=== PATIENT | female | born 1980 | race Caucasian/White ===

== ENCOUNTER 2017-07-17 23:05 | Emergency (ER) | payer MEDICAID ==
[~2017-07-17 23:05] MED LIST: ACET-2043 PO; ACET-3017 PO; AMOX-362 PO; BAC PO; BACDS PO; BACL-1 PO; CEP500 PO; CEPH500T7 PO; CIP500 PO; CIPR-344 PO; CLI150 PO; CLIN300C99 PO; CRAN250T PO; CYCL10TA29 PO; DIA5 PO; DICL-192 PO; DICY-42 PO; DOCU-416 PO; DOXY-179 PO; DOXY-229 PO; FAM20 PO; HYDR-4309 PO; IBU600 PO; IBU800 PO; IBUP-1784 PO; IBUP200C71 PO; IBUP800T37 PO; KET10 PO; LOR5 PO; LOR5/325 PO; MULT1TAB64 PO; NO CURRENT MEDS; NO ROUTINE MEDS; NONE CURRENT; NYST15CR32 TP; ONDA4TAB97 PO; OXYC-373 PO; OXYC-865 PO; PENI-24 PO; PER PO; PHEN-529 PO; PHEN95TA44 PO; PHEN97.53; PHENA200 PO; PROM-110 PO; TAMS0.4C70 PO
--- NOTE | 2017-07-17 23:11 | ER Report ---
History and Physical Time Seen By MD: 23:11 HPI/ROS CHIEF COMPLAINT: Mid back pain HISTORY OF PRESENT ILLNESS: 37-year-old female presents ambulatory to the ER complaining of left upper mid back pain. She points to the area between her spine and the left scapula. She notes she's had a kink in her neck and back for the last 5 days. She's been unable to sleep. She's been taking ibuprofen without relief. She took a leftover muscle relaxant with little improvement. Patient denies fever, chills, productive cough or leg swelling. Patient denies any injury. Patient denies dysuria. Allergies: Coded Allergies: naproxen (Verified Allergy, Intermediate, RASH, 06/25/17) tramadol (Verified Allergy, Intermediate, RASH, 06/25/17) Home Meds Active Scripts Prednisone 10 Mg Tab (PREDNISONE 10 MG TAB) 10 Mg Tablet, 10 MG PO QDAY Y for inflammation reduction, #9 2 tabs daily for 3 days 1 tab daily for 3 days Prov:CRUZ LUEVANO 07/17/17 Diazepam (VALIUM) 5 Mg Tablet, 1-2 TAB PO Q6-8H Y for muscle spasm relief, #15 TAB Prov:CRUZ LUEVANO DO 07/17/17 Oxycodone Hcl/Acetaminophen (PERCOCET 5-325 MG TABLET) 1 Each Tablet, 1-2 EACH PO Q4-6H Y for PAIN, #15 Prov:CRUZ LUEVANO DO 07/17/17 Discontinued Scripts NYSTATIN 363459 UNT/ML Topical Cream (NYSTATIN 146499 UNT/ML Topical Cream) 15 Gm Cream..g., 1 PATRICIO TP BID, #15 GM Prov:PAT DINERO PA-C 06/25/17 Cephalexin 500 Mg Tab (KEFLEX 500 MG TAB) 500 Mg Tablet, 500 MG PO Q6H, #28 TAB Prov:PAT DINERO PA-C 06/25/17 Baclofen (BACLOFEN) 10 Mg Tablet, 10 MG PO TID Y for prn, #15 TAB Prov:PAT DINERO PA-C 06/25/17 Diclofenac Sodium (DICLOFENAC SODIUM) 50 Mg Tablet.dr, 50 MG PO TID Y for prn, # 14 TAB Prov:PAT DINERO PA-C 06/25/17 Past Medical/Surgical History Patient has a past medical history of hypertension, frequent UTIs, cyst on ovaries, arthritis, fractures, back pain. Patient denies any surgical history. Patient has a family medical history of diabetes. Reviewed Nurses Notes: Yes Old Medical Records Reviewed: Yes Hx Smoking: No Smoking Status: Former Smoker Exposure to Second Hand Smoke?: No Hx Substance Use Disorder: No Hx Alcohol Use: No Constitutional Vital Sign - Last 24 Hours 07/17/17 07/17/17 07/17/17 07/17/17 23:09 23:10 23:11 23:15 Temp 98.5 Pulse 96 90 84 Resp 18 B/P (MAP) 155/91 (112) 155/91 Pulse Ox 97 97 96 O2 Delivery Room Air 07/17/17 07/17/17 07/17/17 07/18/17 23:20 23:25 23:30 00:03 Pulse 89 83 97 B/P (MAP) 128/88 (101) Pulse Ox 94 93 95 07/18/17 00:05 Pulse Ox 93 Physical Exam General appearance: Alert no distress. Respiratory: Chest is non tender, lungs are clear to auscultation. Cardiac: Regular rate and rhythm Musculoskeletal: Back there is spasm and tenderness of the thoracic paraspinous musculature on the left side, there is no CVA tenderness DIFFERENTIAL DIAGNOSIS: After history and physical exam differential diagnosis was considered for back pain including but not limited to muscular pain, herniated disc, spine fracture, intra-abdominal causes and urinary tract infection. Medical Decision Making ED Course/Re-evaluation ED Course Patient was admitted to an examination room. H&P was done. The differential diagnoses was considered. On clinical examination. Patient has stable vital signs per she has no fever. She has a normal pulse ox. There is muscular tenderness and spasm consistent with thoracic strain, or somatic muscle dysfunction. Patient's advised to conservative treatment plan. She prescribed muscle relaxants and pain pills. She is advised to continue ibuprofen and heating pad. She is advised to follow-up with primary care if unimproved in 3- 5 days for referral for physical therapy or further diagnostic testing. Decision to Disposition Date: Jul 17, 2017 Decision to Disposition Time: 23:35 Depart Departure Latest Vital Signs Vital Signs Date Time Temp Pulse Resp B/P (MAP) Pulse Ox O2 Delivery O2 Flow Rate FiO2 07/18/17 00:05 93 07/18/17 00:03 128/88 (101) 07/17/17 23:30 97 07/17/17 23:11 98.5 18 Room Air Impression: Primary Impression: Spasm of thoracic back muscle Condition: Improved Disposition: HOME OR SELF-CARE Referrals: KITA HAMLIN CNM New Scripts Prednisone 10 Mg Tab (PREDNISONE 10 MG TAB) 10 Mg Tablet 10 MG PO QDAY Y for inflammation reduction, #9 2 tabs daily for 3 days 1 tab daily for 3 days Prov: CRUZ LUEVANO DO 07/17/17 Diazepam (VALIUM) 5 Mg Tablet 1-2 TAB PO Q6-8H Y for muscle spasm relief, #15 TAB Prov: CRUZ LUEVANO DO 07/17/17 Oxycodone Hcl/Acetaminophen (PERCOCET 5-325 MG TABLET) 1 Each Tablet 1-2 EACH PO Q4-6H Y for PAIN, #15 Prov: CRUZ LUEVANO DO 07/17/17 Patient Instructions: Thoracic Back Strain (ED) Additional Instructions: Apply heating pad to the affected area Continue to take ibuprofen 200 mg 3 tablets 3 times a day with food Take all medication with food Follow-up with your primary care if unimproved in 3-5 days CRUZ LUEVANO DO Jul 17, 2017 23:11
[2017-07-17] MEDS ORDERED: DIA5 PO (23:38)
[2017-07-17] MEDS ORDERED: OXYC-865 PO (23:38)
[2017-07-17] MEDS ORDERED: PRED-1 PO (23:38)
[2017-07-17] MEDS ORDERED: HYDROmorphone HCL 2 MG TAB PO ONE (23:40)
[2017-07-17] MEDS ORDERED: DIAZEPAM 10 MG TAB PO ONE (23:40)
[2017-07-17] MEDS ORDERED: DIAZEPAM 5 MG TAB TH 2 TAB/BOTTLE PO ONE (23:40)
[2017-07-17] MEDS ORDERED: predniSONE 20 MG TAB PO ONE (23:40)
[2017-07-17] MEDS ORDERED: oxyCODONE/ACETAMIN 5/325MG TH 2 TAB/BOTTLE PO ONE (23:40)
[2017-07-18 00:03] VITALS: BP 128/88
== END 2017-07-17 23:58 | disposition home or self-care (01) ==
LOC: ER 23:15
DX: M62.830 Muscle spasm of back (principal)
CPT/HCPCS: 99283; J7512

== ENCOUNTER → 2017-08-02 | Outpatient (REF) | payer MEDICAID ==
[~2017-08-02] MED LIST changes: +PRED-1 PO
[2017-08-02 13:57] LABS: PLATELET COUNT, AUTOMATED 250 K/uL (150-450)
== END ==
PROVIDERS: ATTEND Physician Assistant Medical
DX: R10.9 Unspecified abdominal pain (principal)
CPT/HCPCS: 82040; 82247; 82310; 82374; 82435; 82565; 82947; 83690; 84075; 84132; 84155; 84295; 84450; 84460; 84520; 85025

== ENCOUNTER → 2017-08-02 | Outpatient (CLI) | payer MEDICAID ==
--- NOTE | 2017-08-02 16:01 | RADIOLOGY IMAGING REPORT ---
FACILITY: [facility] PATIENT NAME: Maria Elena Wiley : 1980 MR: [id number] V: [id number] EXAM DATE: ORDERING PHYSICIAN: DAVID FRY TECHNOLOGIST: Location: [facility] Patient: Maria Elena Wiley : 1980 Visit/Account:[id number] Date of Sevice: 08/02/2017 EXAMINATION: CT ABDOMEN AND PELVIS WITHOUT CONTRAST COMPARISON: 10/13/2016 and earlier HISTORY: Abdominal pain. PROCEDURE: Multiplanar noncontrast CT of the abdomen and pelvis. One of the following dose optimizati on techniques was utilized in the performance of this exam: Automated exposure control; adjustment of the mA and/or kV according to the patient's size; or use of an iterative reconstruction technique. Specific details can be referenced in the facility's radiology CT exam operational policy. FINDINGS: Evaluation of the solid and viscus parenchymal organs and vascular structures is limited wi thout the benefit of IV contrast. Visualized thorax: Negative. Liver: Noncontrast imaging of the visualized liver is within normal limits. Gallbladder and biliary system: Negative Spleen: Spleen size is normal. Pancreas: Noncontrast imaging of the pancreas is within normal limits. Adrenal glands: Negative. Kidneys and bladder: Left kidney lower pole 3 mm nonobstructing stone. No radiopaque ureteral stone o r evidence of an obstructive uropathy. Urinary bladder is unremarkable. Vessels: Within normal limits. Bowel and mesentery: Stomach is within normal limits. No small bowel obstruction. Appendix is unrem arkable. Small amount of stool within the colon. No focal region of bowel or mesenteric inflammatio n. Pelvic organs: Negative. Lymph nodes: No adenopathy. Free air/free fluid: None. Abdominal wall and osseous structures: Small fat-containing umbilical hernia. Osseous structures are intact. IMPRESSION: 1. Left kidney lower pole nonobstructing nephrolithiasis. 2. No radiopaque ureteral stone or evidence of an obstructive uropathy. 3. No noncontrast CT findings of acute disease in the abdomen or pelvis. Results were discussed with DAVID FRY at 08/02/2017 3:57 PM. Report Dictated By: Sixto Watson MD at 08/02/2017 3:27 PM Report E-Signed By: Sixto Watson MD at 08/02/2017 3:58 PM WSN:[id number]
== END ==
LOC: CT 14:49
PROVIDERS: ATTEND Physician Assistant Medical
DX: N20.0 Calculus of kidney (principal); K42.9 Umbilical hernia without obstruction or gangrene
CPT/HCPCS: 74176

== ENCOUNTER 2017-08-14 20:06 | Emergency (ER) | payer MEDICAID ==
--- NOTE | 2017-08-14 20:14 | ER Report ---
History and Physical Time Seen By MD: 20:13 HPI/ROS CHIEF COMPLAINT: Back pain HISTORY OF PRESENT ILLNESS: 37-year-old female patient presents to emergency room with complaint of back pain. Patient states that she's been having back pain significantly for the past 2 days. Patient states that she is not been able to sleep through the night with the back pain. She states that she often wakes up and her has to rub her back to help and after while she is able to go back to sleep. Patient states she was diagnosed approximately 2 weeks ago with a kidney stone. She is unsure if she is past that. She states she has been having to urinate quite frequent. She states that she has not had any fevers, chills, nausea, vomiting or diarrhea. Patient states that she has had hard time passing stools heart is normal when she does that tends to exacerbate her back pain. Patient is unsure of any blood in her urine. REVIEW OF SYSTEMS: Respiratory: No cough, no dyspnea. Cardiovascular: No chest pain, no palpitations. Gastrointestinal: No vomiting, no abdominal pain. Musculoskeletal: As noted above Allergies: Coded Allergies: naproxen (Verified Allergy, Intermediate, RASH, 06/25/17) tramadol (Verified Allergy, Intermediate, RASH, 06/25/17) Home Meds Active Scripts Cyclobenzaprine Hcl (CYCLOBENZAPRINE HCL) 10 Mg Tablet, 5-10 MG PO TID Y for MUSCLE SPASMS, #20 TAB Prov:JEREMIAH DEVLIN 08/14/17 Acetaminophen With Codeine # 3 (TYLENOL WITH CODEINE #3 TABLET) 1 Each Tablet, 1 EACH PO Q4-6H Y for PAIN, #10 TAB Prov:JEREMIAH DEVLIN 08/14/17 Prednisone 10 Mg Tab (PREDNISONE 10 MG TAB) 10 Mg Tablet, 10 MG PO QDAY Y for inflammation reduction, #9 2 tabs daily for 3 days 1 tab daily for 3 days Prov:CRUZ LUEVANO DO 07/17/17 Diazepam (VALIUM) 5 Mg Tablet, 1-2 TAB PO Q6-8H Y for muscle spasm relief, #15 TAB Prov:CRUZ LUEVANO DO 07/17/17 Oxycodone Hcl/Acetaminophen (PERCOCET 5-325 MG TABLET) 1 Each Tablet, 1-2 EACH PO Q4-6H Y for PAIN, #15 Prov:CRUZ LUEVANO DO 07/17/17 Past Medical/Surgical History Patient has a past medical history of hypertension, kidney stone, frequent UTI, cyst on ovaries, right arm fracture, back pain. Patient denies having any pertinent surgical history. Patient has a family medical history of diabetes. Reviewed Nurses Notes: Yes Hx Smoking: No Smoking Status: Former Smoker Exposure to Second Hand Smoke?: No Hx Substance Use Disorder: No Hx Alcohol Use: No Constitutional Vital Sign - Last 24 Hours 08/14/17 08/14/17 08/14/17 08/14/17 20:13 20:15 20:16 20:31 Temp 98.4 Pulse 100 101 94 Resp 20 B/P (MAP) 164/86 (112) 164/86 Pulse Ox 96 96 95 O2 Delivery Room Air Physical Exam General Appearance: The patient is alert, has no immediate need for airway protection and no current signs of toxicity. Respiratory: Chest is non tender, lungs are clear to auscultation. Cardiac: regular rate and rhythm Gastrointestinal: Abdomen is soft and non tender, no masses, bowel sounds normal. Musculoskeletal: Neck: Neck is supple and non tender. Extremities have full range of motion and are non tender. Back: Patient does have tenderness to the lumbar spine, no CVA tenderness noted. Skin: No rashes or lesions. DIFFERENTIAL DIAGNOSIS: After history and physical exam differential diagnosis was considered for kidney stone, urinary tract infection, muscle strain. Medical Decision Making Data Points Laboratory Hematology Test 08/14/17 20:22 Urine Color Yellow Urine Clarity Clear Urine pH 6.0 pH (4.8-9.5) Urine Specific [place] 1.017 Urine Protein 100 mg/dL (NEGATIVE) Urine Glucose (UA) Negative mg/dL (NEGATIVE) Urine Ketones Negative mg/dL (NEGATIVE) Urine Blood Negative (NEGATIVE) Urine Nitrite Negative (NEGATIVE) Urine Bilirubin Negative (NEGATIVE) Urine Urobilinogen 2.0 mg/dL (0.2-1.9) Urine Leukocyte Esterase Negative (NEGATIVE) Urine RBC 1 /HPF (0-2/HPF) Urine WBC 4 /HPF (0-5/HPF) Urine Squamous Epithelial Cells Many /LPF (</=FEW) Urine Bacteria Negative /HPF (NONE-FEW) Urine Mucus None /HPF (NONE-FEW) Chemistry Test 08/14/17 20:22 Urine Color Yellow Urine Clarity Clear Urine pH 6.0 pH (4.8-9.5) Urine Specific [place] 1.017 Urine Protein 100 mg/dL (NEGATIVE) Urine Glucose (UA) Negative mg/dL (NEGATIVE) Urine Ketones Negative mg/dL (NEGATIVE) Urine Blood Negative (NEGATIVE) Urine Nitrite Negative (NEGATIVE) Urine Bilirubin Negative (NEGATIVE) Urine Urobilinogen 2.0 mg/dL (0.2-1.9) Urine Leukocyte Esterase Negative (NEGATIVE) Urine RBC 1 /HPF (0-2/HPF) Urine WBC 4 /HPF (0-5/HPF) Urine Squamous Epithelial Cells Many /LPF (</=FEW) Urine Bacteria Negative /HPF (NONE-FEW) Urine Mucus None /HPF (NONE-FEW) Urinalysis Test 08/14/17 20:22 Urine Color Yellow Urine Clarity Clear Urine pH 6.0 pH (4.8-9.5) Urine Specific [place] 1.017 Urine Protein 100 mg/dL (NEGATIVE) Urine Glucose (UA) Negative mg/dL (NEGATIVE) Urine Ketones Negative mg/dL (NEGATIVE) Urine Blood Negative (NEGATIVE) Urine Nitrite Negative (NEGATIVE) Urine Bilirubin Negative (NEGATIVE) Urine Urobilinogen 2.0 mg/dL (0.2-1.9) Urine Leukocyte Esterase Negative (NEGATIVE) Urine RBC 1 /HPF (0-2/HPF) Urine WBC 4 /HPF (0-5/HPF) Urine Squamous Epithelial Cells Many /LPF (</=FEW) Urine Bacteria Negative /HPF (NONE-FEW) Urine Mucus None /HPF (NONE-FEW) ED Course/Re-evaluation ED Course Patient was admitted to examined, history and physical were obtained. Differential diagnosis was considered. On examination patient has tenderness to the low back. Patient did not have any injury to it. A urinalysis was obtained. There was no white blood cells and no blood noted. I discussed findings with patient. I do not believe that she is having kidney stone, as the kidney stone that was noted on the was located in the kidney. We will go ahead and treat her with a limited supply of pain medication, Tylenol No. 3 and Flexeril. She is to follow-up with outpatient physical therapy. I would like her to follow -up with primary care provider in the next week. Discusses patient and her family and they verbalized understanding and agreement with plan. Decision to Disposition Date: Aug 14, 2017 Decision to Disposition Time: 21:00 Depart Departure Latest Vital Signs Vital Signs Date Time Temp Pulse Resp B/P (MAP) Pulse Ox O2 Delivery O2 Flow Rate FiO2 08/14/17 20:31 94 95 08/14/17 20:15 98.4 20 164/86 Room Air Impression: Primary Impression: Low back strain Condition: Improved Disposition: HOME OR SELF-CARE New Scripts Cyclobenzaprine Hcl (CYCLOBENZAPRINE HCL) 10 Mg Tablet 5-10 MG PO TID Y for MUSCLE SPASMS, #20 TAB Prov: JEREMIAH DEVLIN 08/14/17 Acetaminophen With Codeine # 3 (TYLENOL WITH CODEINE #3 TABLET) 1 Each Tablet 1 EACH PO Q4-6H Y for PAIN, #10 TAB Prov: JEREMIAH DEVLIN 08/14/17 Patient Instructions: Low Back Strain (ED) Additional Instructions: Limit activity by pain. Alternate ice and heat. Get plenty of rest. Increase low impact aerobic activity to get more blood flow to the muscles. Return to the ER if condition worsens. Follow up with your primary care provider in the next week. I would encourage following up with Physical Therapy. You can call and make and appointment tomorrow, call the hospital ([phone]) and ask for out-patient physical therapy. Problem Qualifiers Primary Impression: Low back strain Encounter type: initial encounter Qualified Codes: S39.012A - Strain of muscle, fascia and tendon of lower back, initial encounter JEREMIAH DEVLIN Aug 14, 2017 20:14
[2017-08-14] MEDS ORDERED: CYCLOBENZAPRINE HCL 10 MG TH PO ONE (20:55)
[2017-08-14] MEDS ORDERED: ACETAM/CODEINE #3 300-30 MG TH 2 TAB/BOTTLE PO ONE (20:55)
[2017-08-14] MEDS ORDERED: CYCL10TA29 PO (20:58)
[2017-08-14] MEDS ORDERED: ACET-3017 PO (20:58)
[2017-08-14 21:06] VITALS: BP 121/90
== END 2017-08-14 21:10 | disposition home or self-care (01) ==
LOC: ER 20:19
DX: S39.012A Strain of muscle, fascia and tendon of lower back, initial encounter (principal)
CPT/HCPCS: 81001; 99283

== ENCOUNTER 2017-08-24 14:23 | Emergency (ER) | payer MEDICAID ==
[2017-08-24] MEDS ORDERED: ALBUTEROL/IPRATROPIUM 3 ML NEB NEB ONE (14:25)
[2017-08-24] MEDS ORDERED: NS(*) 0.9% 1000 ML BAG 1,000 ML IV ONE (14:25)
[2017-08-24] MEDS ORDERED: methylPREDNIS SUCC 125 MG/2ML IVP ONE (14:25)
--- NOTE | 2017-08-24 14:28 | ER Report ---
History and Physical Time Seen By MD: 14:27 Hx. of Stated Complaint: mxed bleach and ammonia to clean and is having dyspnea, cough HPI/ROS CHIEF COMPLAINT: Shortness of breath HISTORY OF PRESENT ILLNESS: 37-year-old female patient presents to emergency room with complaint of shortness of breath. Patient states this started just 1520 minutes prior to arriving the emergency room. Patient states that she was in the process of cleaning the bathroom, her daughter had her hair in the bathtub and gotten dye all over. Patient states she put bleach in the bathtub. She states then that she was cleaning the toilet with an ammonia based solvent. The patient states that she believes that the fumes were exiting, she states that she started having hard time breathing after inhaling that. She states she was exposed for about 3-4 minutes. She states that the shortness of breath became significantly worse. She states that she went outside, she opened all the windows her house, she turn the fan on in the bathroom. She states that she did get a hold of her told him that she is having hard time breathing and that she needed to go to the hospital. EMS was contacted. She states that in route they gave her 100% oxygen. She states that she is still having significant amount discomfort when she coughs. REVIEW OF SYSTEMS: Respiratory: As noted above Cardiovascular: No chest pain, no palpitations. Gastrointestinal: No vomiting, no abdominal pain. Musculoskeletal: No back pain. Allergies: Coded Allergies: naproxen (Verified Allergy, Intermediate, RASH, 06/25/17) tramadol (Verified Allergy, Intermediate, RASH, 06/25/17) Home Meds Active Scripts Cyclobenzaprine Hcl (CYCLOBENZAPRINE HCL) 10 Mg Tablet, 5-10 MG PO TID Y for MUSCLE SPASMS, #20 TAB Prov:JEREMIAH DEVLINP 08/14/17 Acetaminophen With Codeine # 3 (TYLENOL WITH CODEINE #3 TABLET) 1 Each Tablet, 1 EACH PO Q4-6H Y for PAIN, #10 TAB Prov:JEREMIAH DEVLIN 08/14/17 Prednisone 10 Mg Tab (PREDNISONE 10 MG TAB) 10 Mg Tablet, 10 MG PO QDAY Y for inflammation reduction, #9 2 tabs daily for 3 days 1 tab daily for 3 days Prov:CRUZ LUEVANO DO 07/17/17 Diazepam (VALIUM) 5 Mg Tablet, 1-2 TAB PO Q6-8H Y for muscle spasm relief, #15 TAB Prov:CRUZ LUEVANO DO 07/17/17 Oxycodone Hcl/Acetaminophen (PERCOCET 5-325 MG TABLET) 1 Each Tablet, 1-2 EACH PO Q4-6H Y for PAIN, #15 Prov:CRUZ LUEVANO DO 07/17/17 Past Medical/Surgical History Patient has a past medical history of hypertension, kidney stone, frequent UTIs , ovarian cyst, arthritis, fracture, back pain. Patient denies any pertinent surgical history. Patient has a family medical history of diabetes. Reviewed Nurses Notes: Yes Hx Smoking: No Smoking Status: Former Smoker Exposure to Second Hand Smoke?: No Hx Substance Use Disorder: No Hx Alcohol Use: No Constitutional Vital Sign - Last 24 Hours 08/24/17 08/24/17 08/24/17 08/24/17 14:30 14:30 14:30 14:37 Pulse 100 95 Resp 18 B/P (MAP) 147/97 (114) Pulse Ox 98 99 O2 Delivery Non-Rebreather O2 Flow Rate 15.0 08/24/17 08/24/17 08/24/17 08/24/17 14:45 14:47 15:00 15:12 Pulse 104 102 Resp 16 B/P (MAP) 134/87 (103) 131/77 (95) Pulse Ox 90 O2 Flow Rate 15.0 08/24/17 08/24/17 08/24/17 08/24/17 15:15 15:30 15:42 15:45 Pulse 89 92 84 Pulse Ox 91 88 86 93 O2 Delivery Room Air O2 Flow Rate 3.0 08/24/17 08/24/17 08/24/17 08/24/17 16:00 16:15 16:30 16:45 Pulse 83 79 82 86 Pulse Ox 93 94 95 95 08/24/17 08/24/17 08/24/17 08/24/17 17:00 17:15 17:45 18:00 Pulse 73 92 75 81 Pulse Ox 94 96 91 89 Intake and Output 08/24/17 08/24/17 08/25/17 15:00 23:00 07:00 Intake Total 1000 ml Balance 1000 ml Physical Exam General Appearance: The patient is alert, has no immediate need for airway protection and no current signs of toxicity. Respiratory: Chest is non tender, lungs are coarse especially in the bilateral upper lobes to auscultation. Cardiac: regular rate and rhythm Gastrointestinal: Abdomen is soft and non tender, no masses, bowel sounds normal. Musculoskeletal: Neck: Neck is supple and non tender. Extremities have full range of motion and are non tender. Skin: No rashes or lesions. DIFFERENTIAL DIAGNOSIS: After history and physical exam differential diagnosis was considered for shortness of breath including but not limited to pulmonary infectious process, COPD, asthma, pulmonary embolus and congestive heart failure. Included in the differential is exposure to chloramine gas. Medical Decision Making Data Points Result Diagram: 08/24/17 1434 08/24/17 1434 Laboratory Hematology Test 08/24/17 14:34 Red Blood Count 5.35 M/uL (4.17-5.56) Mean Corpuscular Volume 89.1 fL (80.0-96.0) Mean Corpuscular Hemoglobin 30.8 pg (26.0-33.0) Mean Corpuscular Hemoglobin Concent 34.5 g/dL (32.0-36.0) Red Cell Distribution Width 13.6 % (11.5-14.5) Mean Platelet Volume 7.3 fL (7.2-11.1) Neutrophils (%) (Auto) 70.4 % (39.4-72.5) Lymphocytes (%) (Auto) 20.3 % (17.6-49.6) Monocytes (%) (Auto) 7.8 % (4.1-12.4) Eosinophils (%) (Auto) 0.7 % (0.4-6.7) Basophils (%) (Auto) 0.8 % (0.3-1.4) Nucleated RBC Relative Count (auto) 0.1 /100WBC Neutrophils # (Auto) 7.8 K/uL (2.0-7.4) Lymphocytes # (Auto) 2.2 K/uL (1.3-3.6) Monocytes # (Auto) 0.9 K/uL (0.3-1.0) Eosinophils # (Auto) 0.1 K/uL (0.0-0.5) Basophils # (Auto) 0.1 K/uL (0.0-0.1) Nucleated RBC Absolute Count (auto) 0.01 K/uL Sodium Level 139 mmol/L (137-145) Potassium Level 4.1 mmol/L (3.5-5.0) Chloride Level 101 mmol/L (98-107) Carbon Dioxide Level 24 mmol/L (22-31) Blood Urea Nitrogen 9 mg/dl (7-18) Creatinine 0.80 mg/dl (0.52-1.04) Glomerular Filtration Rate Calc > 60.0 Random Glucose 86 mg/dl (75-110) Calcium Level 8.8 mg/dl (8.4-10.2) Total Bilirubin 0.4 mg/dl (0.2-1.3) Aspartate Amino Transf (AST/SGOT) 28 U/L (0-35) Alanine Aminotransferase (ALT/SGPT) 41 U/L (0-56) Alkaline Phosphatase 71 U/L (0-126) Troponin I < 0.012 ng/ml Total Protein 8.2 gm/dl (6.3-8.2) Albumin 4.4 g/dl (3.5-5.0) Human Chorionic Gonadotropin, Qual Negative (NEGATIVE) Chemistry Test 08/24/17 14:34 White Blood Count 11.0 k/uL (4.5-11.0) Red Blood Count 5.35 M/uL (4.17-5.56) Hemoglobin 16.4 g/dL (12.0-16.0) Hematocrit 47.7 % (34.0-47.0) Mean Corpuscular Volume 89.1 fL (80.0-96.0) Mean Corpuscular Hemoglobin 30.8 pg (26.0-33.0) Mean Corpuscular Hemoglobin Concent 34.5 g/dL (32.0-36.0) Red Cell Distribution Width 13.6 % (11.5-14.5) Platelet Count 262 K/uL (150-450) Mean Platelet Volume 7.3 fL (7.2-11.1) Neutrophils (%) (Auto) 70.4 % (39.4-72.5) Lymphocytes (%) (Auto) 20.3 % (17.6-49.6) Monocytes (%) (Auto) 7.8 % (4.1-12.4) Eosinophils (%) (Auto) 0.7 % (0.4-6.7) Basophils (%) (Auto) 0.8 % (0.3-1.4) Nucleated RBC Relative Count (auto) 0.1 /100WBC Neutrophils # (Auto) 7.8 K/uL (2.0-7.4) Lymphocytes # (Auto) 2.2 K/uL (1.3-3.6) Monocytes # (Auto) 0.9 K/uL (0.3-1.0) Eosinophils # (Auto) 0.1 K/uL (0.0-0.5) Basophils # (Auto) 0.1 K/uL (0.0-0.1) Nucleated RBC Absolute Count (auto) 0.01 K/uL Glomerular Filtration Rate Calc > 60.0 Calcium Level 8.8 mg/dl (8.4-10.2) Total Bilirubin 0.4 mg/dl (0.2-1.3) Aspartate Amino Transf (AST/SGOT) 28 U/L (0-35) Alanine Aminotransferase (ALT/SGPT) 41 U/L (0-56) Alkaline Phosphatase 71 U/L (0-126) Troponin I < 0.012 ng/ml Total Protein 8.2 gm/dl (6.3-8.2) Albumin 4.4 g/dl (3.5-5.0) Human Chorionic Gonadotropin, Qual Negative (NEGATIVE) EKG/Imaging EKG Interpretation 12 lead EKG: Rhythm: normal sinus rhythm with a rate of 96 bpm [place]: normal QRS: normal ST segments: Nonspecific T-wave abnormality Imaging Examination: CHEST PA AND LAT Comparison: Same day and earlier. History: Chest pain when coughing after inhaling chemicals. Findings: No consolidation, nodule, or peribronchial inflammation. No pneumothorax, edema, or effusion. Cardiac and hilar contour size is within normal limits. Visualized bowel gas pattern is unremarkable. Osseous structures are intact. IMPRESSION: Negative chest. Report Dictated By: Sixto Watson MD at 08/24/2017 5:48 PM Report E-Signed By: Sixto Watson MD at 08/24/2017 5:50 PM EXAMINATION: Chest 2 Views HISTORY: Respiratory distress. COMPARISON: None. FINDINGS: The lungs are clear. No focal consolidation or pleural fluid. No pneumothorax. Normal cardiomediastinal silhouette, with normal heart size and pulmonary vascularity. Visualized osseous structures are unremarkable. IMPRESSION: Negative chest. Report Dictated By: Aamir Heck MD at 08/24/2017 3:24 PM Report E-Signed By: Aamir Heck MD at 08/24/2017 3:28 PM ED Course/Re-evaluation ED Course Patient is admitted and examined, history and physical were obtained. Differential diagnoses were considered. On examination patient does have rhonchi in the bilateral upper lobes. A CBC, CMP, chest x-ray were done. Patient received a liter of normal saline, she also received 125 mg of Solu- Medrol. Patient also received a dose of DuoNeb. On reexamination patient states she's feeling slightly better. Labs were unremarkable. I discussed the case with poison control. Patient has a case number of [id number] the recommended symptomatic treatment, monitor for 4-5 hours and then if she is feeling better she may be discharged. Patient is to have strict instructions return to the emergency room. I did continue to watch the patient for 3 hours. 3 are submitted repeat chest x-ray which was negative. At that time lung sounds were significant improved. We will go ahead and discharge patient home at this time. She is to increase fluid intake, get plenty of rest, she is to use a humidifier or steam moisture for soothing the throat and trachea. She is return to emergency room if condition worsens. I discussed this with the patient who verbalized understanding and agreement with plan. She states she is ready to go home at this time. Decision to Disposition Date: Aug 24, 2017 Decision to Disposition Time: 18:08 Depart Departure Latest Vital Signs Vital Signs Date Time Temp Pulse Resp B/P (MAP) Pulse Ox O2 Delivery O2 Flow Rate FiO2 08/24/17 18:00 81 89 08/24/17 15:42 Room Air 3.0 08/24/17 15:00 131/77 (95) 08/24/17 14:47 16 Impression: Primary Impression: Inflammation of trachea and bronchus Additional Impression: Exposure to chemical inhalation Condition: Improved Disposition: HOME OR SELF-CARE Patient Instructions: GENERAL ER DISCHARGE INSTRUCTIONS Additional Instructions: Increase fluid intake. Get plenty of rest. Follow up with your primary care provider in the next week. Return to the ER if you are having a hard time breathing. You may use steam or a humidifier to make it easier for your breathing. You may use a throat lozenge to help with the discomfort. Problem Qualifiers JEREMIAH DEVLIN Aug 24, 2017 14:28
[2017-08-24 14:42] LABS: PLATELET COUNT, AUTOMATED 262 K/uL (150-450)
--- NOTE | 2017-08-24 14:51 | EKG ---
[place] [facility] [place] SEUN HAMLIN : [id number] MR: [id number] V: [id number] EXAM DATE: ORDERING PHYSICIAN: JEREMIAH DEVLIN TECHNOLOGIST: NERY Gu Reason : RESP Blood Pressure : / mmHG Vent. Rate : 096 BPM Atrial Rate : 096 BPM P-R Int : 138 ms QRS Dur : 076 ms QT Int : 342 ms P-R-T Axes : 077 056 078 degrees QTc Int : 432 ms Normal sinus rhythm Nonspecific T wave abnormality Abnormal ECG No previous ECGs available Confirmed by HAYDEE LR ([id number]) on 08/24/2017 3:16:22 PM Referred By: JEREMIAH Confirmed By:HAYDEE LR
[2017-08-24 15:00] VITALS: BP 131/77
--- NOTE | 2017-08-24 15:31 | RADIOLOGY IMAGING REPORT ---
FACILITY: [facility] PATIENT NAME: Maria Elena Wiley : 1980 MR: [id number] V: [id number] EXAM DATE: ORDERING PHYSICIAN: JEREMIAH DEVLIN TECHNOLOGIST: Location: Patient: Maria Elena Wiley : 1980 Visit/Account:[id number] Date of Sevice: 08/24/2017 EXAMINATION: Chest 2 Views HISTORY: Respiratory distress. COMPARISON: None. FINDINGS: The lungs are clear. No focal consolidation or pleural fluid. No pneumothorax. Normal cardiomedias tinal silhouette, with normal heart size and pulmonary vascularity. Visualized osseous structures ar e unremarkable. IMPRESSION: Negative chest. Report Dictated By: Aamir Heck MD at 08/24/2017 3:24 PM Report E-Signed By: Aamir eHck MD at 08/24/2017 3:28 PM WSN:[id number]
--- NOTE | 2017-08-24 17:55 | RADIOLOGY IMAGING REPORT ---
FACILITY: [facility] [place] PATIENT NAME: Maria Elena Wiley : 1980 MR: [id number] V: [id number] EXAM DATE: ORDERING PHYSICIAN: JEREMIAH DEVLIN TECHNOLOGIST: Location[place] [facility] [place] Patient: Maria Elena Wiley : 1980 Visit/Account:[id number] Date of Sevice: 08/24/2017 Examination: CHEST PA AND LAT Comparison: Same day and earlier. History: Chest pain when coughing after inhaling chemicals. Findings: No consolidation, nodule, or peribronchial inflammation. No pneumothorax, edema, or effusio n. Cardiac and hilar contour size is within normal limits. Visualized bowel gas pattern is unremarkab le. Osseous structures are intact. IMPRESSION: Negative chest. Report Dictated By: Sixto Watson MD at 08/24/2017 5:48 PM Report E-Signed By: Sixto Watson MD at 08/24/2017 5:50 PM WSN:[id number]
== END 2017-08-24 18:19 | disposition home or self-care (01) ==
LOC: ER 14:31
DX: J04.10 Acute tracheitis without obstruction (principal); Z77.098 Contact with and (suspected) exposure to other hazardous, chiefly nonmedicinal, chemicals
CPT/HCPCS: 71046; 84484; 84703; 85025; 93005; 94640; 96361; 96374; 99284; J2930; J7030; J7620; 82040; 82247; 82310; 82374; 82435; 82565; 82947; 84075; 84132; 84155; 84295; 84450; 84460; 84520

== ENCOUNTER → 2017-08-24 | Outpatient (CLI) | payer MEDICAID | LOC: AMB 13:56 | PROVIDERS: ATTEND Nurse Practitioner | DX: R06.00 Dyspnea, unspecified (principal); R07.89 Other chest pain; T59.91XA Toxic effect of unspecified gases, fumes and vapors, accidental (unintentional), initial encounter; Y92.019 Unspecified place in single-family (private) house as the place of occurrence of the external cause | CPT/HCPCS: A0425; A0427 ==

== ENCOUNTER 2017-09-22 20:52 | Emergency (ER) | payer MEDICAID ==
[2017-09-22] MEDS ORDERED: ESCI20TA38 PO (21:02)
[2017-09-22 21:30] VITALS: BP 145/93
--- NOTE | 2017-09-22 21:33 | RADIOLOGY IMAGING REPORT ---
FACILITY: [facility] PATIENT NAME: Maria Elena Wiley : 1980 MR: [id number] V: [id number] EXAM DATE: ORDERING PHYSICIAN: CHARMAINE OJEDA TECHNOLOGIST: Location: [facility] [place] Patient: Maria Elena Wiley : 1980 Visit/Account:[id number] Date of Sevice: 09/22/2017 INDICATION: heel pain. no trauma EXAM DATE: 09/22/2017 9:03 PM COMPARISON: 04/20/2015. FINDINGS: 2 views right foot. Mineralization is normal. No acute alignment abnormality or fracture. Os trigonu m. Tiny calcaneal spur. Bipartite medial sesamoid at the 1st metatarsophalangeal joint. Soft tissu es are unremarkable. IMPRESSION: 1. No acute osseous abnormality of the right foot. 2. Tiny calcaneal spur. Report Dictated By: Bridger Chamorro MD at 09/22/2017 9:28 PM Report E-Signed By: Bridger Chamorro MD at 09/22/2017 9:30 PM WSN:[id number]
[2017-09-22] MEDS ORDERED: IBUP600T22 PO (21:47)
--- NOTE | 2017-09-22 21:47 | ER Report ---
History and Physical Time Seen By MD: 21:00 Hx. of Stated Complaint: patient states that she has had heel pain for the past two weeks; patient states that the last two days pain has gotten worse and tonight she can not deal with the pain any longer HPI/ROS Pain at right heel for 2 weeks. The pain is on the bottom of heel and not posterior ankle. No known trauma. No fever/chills. Worse in the morning when she steps down for the first time. Allergies: Coded Allergies: naproxen (Verified Allergy, Intermediate, RASH, 09/22/17) tramadol (Verified Allergy, Intermediate, RASH, 09/22/17) Home Meds Active Scripts Ibuprofen (IBUPROFEN) 600 Mg Tablet, 1 TAB PO Q6H for 14 Days, #30 TAB Prov:CHARMAINE OJEDA MD 09/22/17 Reported Medications Escitalopram Oxalate (LEXAPRO) 20 Mg Tablet, 10 MG PO QDAY, TAB 09/22/17 Discontinued Scripts Cyclobenzaprine Hcl (CYCLOBENZAPRINE HCL) 10 Mg Tablet, 5-10 MG PO TID Y for MUSCLE SPASMS, #20 TAB Prov:JEREMIAH DEVLIN [employer] PROPERTY MANAGER 08/14/17 Acetaminophen With Codeine # 3 (TYLENOL WITH CODEINE #3 TABLET) 1 Each Tablet, 1 EACH PO Q4-6H Y for PAIN, #10 TAB Prov:JEREMIAH DEVLIN [facility] 08/14/17 Prednisone 10 Mg Tab (PREDNISONE 10 MG TAB) 10 Mg Tablet, 10 MG PO QDAY Y for inflammation reduction, #9 2 tabs daily for 3 days 1 tab daily for 3 days Prov:CRUZ LUEVANO DO 07/17/17 Diazepam (VALIUM) 5 Mg Tablet, 1-2 TAB PO Q6-8H Y for muscle spasm relief, #15 TAB Prov:CRUZ LUEVANO DO 07/17/17 Oxycodone Hcl/Acetaminophen (PERCOCET 5-325 MG TABLET) 1 Each Tablet, 1-2 EACH PO Q4-6H Y for PAIN, #15 Prov:CRUZ LUEVANO DO 07/17/17 Reviewed Nurses Notes: Yes Old Medical Records Reviewed: Yes Hx Smoking: No Smoking Status: Former Smoker Exposure to Second Hand Smoke?: No Hx Substance Use Disorder: No Hx Alcohol Use: No Constitutional Vital Sign - Last 24 Hours 09/22/17 09/22/17 09/22/1718 20:55 20:56 21:00 21:22 Temp 97.8 Pulse 87 79 Resp 19 B/P (MAP) 154/96 (115) 154/96 136/97 (110) Pulse Ox 93 94 09/22/17 21:30 B/P (MAP) 145/93 (110) Physical Exam General appearance: Alert no distress. Righ lower extremity: Pulses in tact, sensation in tact, no obvious deformity. No pain in ankle/leg. TTP at posterior heel at insertion of plantar fascia tendon. No masses. No joint swelling. No TTP of plantar fascia DIFFERENTIAL DIAGNOSIS: After history and physical exam differential diagnosis was considered for infection, achilles rupture, fracture/dislocation. plantar fasciitis Medical Decision Making EKG/Imaging Imaging X-ray: right foot was obtained. I viewed the images myself on the PACS system. My interpretation of the images is: right heel spur. The radiologist interpretation had no clinically significant variation from this interpretation. ED Course/Re-evaluation ED Course Pain in right heel for 2 weeks. No known trauma. Pain is worse in the morning. There is point tenderness to palpation of the tendon insertion of the plantar fascia. Achilles tendon is intact. No evidence of infection. This could be pain from her known bone spur or an acute plantar fasciitis tendinitis given she describes the pain as much worse in the morning when she takes her 1st step of the day. She was given a postop shoe for comfort. She will continue with ibuprofen 600 mg every 6 hours. She will follow up with her primary care doctor to obtain a referral for physical therapy and possibly a termination clerk. Decision to Disposition Date: Sep 22, 2017 Decision to Disposition Time: 22:00 Depart Departure Latest Vital Signs Vital Signs Date Time Temp Pulse Resp B/P (MAP) Pulse Ox O2 Delivery O2 Flow Rate FiO2 09/22/17 21:30 145/93 (110) 09/22/17 21:22 79 94 09/22/17 20:56 97.8 19 Impression: Primary Impression: Plantar fasciitis of right foot Condition: Improved Disposition: HOME OR SELF-CARE New Scripts Ibuprofen (IBUPROFEN) 600 Mg Tablet 1 TAB PO Q6H for 14 Days, #30 TAB Prov: CHARMAINE OJEDA MD 09/22/17 Patient Instructions: Plantar Fasciitis Exercises (ED) CHARMAINE OJEDA MD Sep 22, 2017 21:47
== END 2017-09-22 21:54 | disposition home or self-care (01) ==
LOC: ER 21:01
DX: M72.2 Plantar fascial fibromatosis (principal)
CPT/HCPCS: 99283

== ENCOUNTER 2018-03-24 19:12 | Emergency (ER) | payer MEDICAID ==
[~2018-03-24 19:12] MED LIST changes: +ESCI20TA38 PO; +IBUP-136 PO; -IBUP200C71 PO; +IBUP600T22 PO
--- NOTE | 2018-03-24 19:14 | ER Report ---
History and Physical Time Seen By MD: 19:13 HPI/ROS CHIEF COMPLAINT: Urinary tract infection symptoms HISTORY OF PRESENT ILLNESS: Patient is a 37-year-old female here with complaints of burning with urination, increased frequency, nausea, vomiting, fevers or chills. Patient is afebrile at time of reevaluation, hemodynamically stable. She reports that her last meal was at approximately 1300. She reports suprapubic tenderness and discomfort. She has had urinary tract infections in the past but none this severe with symptomatology. Denies headache, blurred vision, blood in stools or urine, chest pain or shortness breath. REVIEW OF SYSTEMS: Constitutional: + fever, + chills. Cardiovascular: No chest pain, no palpitations. Respiratory: No cough, no shortness of breath. Gastrointestinal: + suprapubic abdominal tenderness + nausea and vomiting. Genitourinary: No hematuria, + increased frequency and burning with urination Musculoskeletal: No back pain. Skin: No rashes. Neurological: No headache. Allergies: Coded Allergies: naproxen (Verified Allergy, Intermediate, RASH, 09/22/17) tramadol (Verified Allergy, Intermediate, RASH, 09/22/17) Home Meds Active Scripts Nitrofurantoin Macrocrystal (NITROFURANTOIN) 100 Mg Capsule, 100 MG PO BID for 5 Days, #10 CAPSULE Prov:KRISTINA BORJAS DO 03/24/18 Reported Medications Escitalopram Oxalate (LEXAPRO) 20 Mg Tablet, 10 MG PO QDAY, TAB 09/22/17 Discontinued Scripts Ibuprofen (IBUPROFEN) 600 Mg Tablet, 1 TAB PO Q6H for 14 Days, #30 TAB Prov:CHARMAINE OJEDA MD 09/22/17 Hx Smoking: No Smoking Status: Former Smoker Exposure to Second Hand Smoke?: No Hx Substance Use Disorder: No Hx Alcohol Use: No Constitutional Vital Sign - Last 24 Hours 03/24/18 19:23 Temp 98.4 Pulse 80 Resp 16 B/P (MAP) 140/79 Pulse Ox 93 O2 Delivery Room Air Physical Exam General Appearance: The patient is alert, has no immediate need for airway protection and no signs of toxicity. Mild distress secondary to discomfort Eyes: Pupils equal and round no pallor or injection. ENT, Mouth: Mucous membranes are moist. Respiratory: There are no retractions, lungs are clear to auscultation. Cardiovascular: Regular rate and rhythm. Gastrointestinal: Abdomen is soft and + mildly tender in the supra pubic area, no masses, bowel sounds normal. Neurological: No focal deficits Skin: Warm and dry, no rashes. Musculoskeletal: Neck is supple non tender. Extremities are nontender, nonswollen and have full range of motion. DIFFERENTIAL DIAGNOSIS: After history and physical exam differential diagnosis was considered for UTI, ureterolithiasis, pyelonephritis, gastroenteritis Medical Decision Making Data Points Laboratory Hematology Test 03/24/18 19:10 Urine Color [place] Urine Clarity Clear Urine pH Color interference Urine Specific [place] Color interference Urine Protein Color interference Urine Glucose (UA) Color interference Urine Ketones Color interference Urine Blood Color interference Urine Nitrite Color interference Urine Bilirubin Color interference Urine Urobilinogen Color interference Urine Leukocyte Esterase Color interference Urine RBC 5 /HPF (0-2/HPF) Urine WBC 328 /HPF (0-5/HPF) Urine Squamous Epithelial Cells Many /LPF (</=FEW) Urine Transitional Epithelial Cells Moderate /LPF (NONE-FEW) Urine Bacteria Negative /HPF (NONE-FEW) Urine Mucus None /HPF (NONE-FEW) Chemistry Test 03/24/18 19:10 Urine Color [place] Urine Clarity Clear Urine pH Color interference Urine Specific [place] Color interference Urine Protein Color interference Urine Glucose (UA) Color interference Urine Ketones Color interference Urine Blood Color interference Urine Nitrite Color interference Urine Bilirubin Color interference Urine Urobilinogen Color interference Urine Leukocyte Esterase Color interference Urine RBC 5 /HPF (0-2/HPF) Urine WBC 328 /HPF (0-5/HPF) Urine Squamous Epithelial Cells Many /LPF (</=FEW) Urine Transitional Epithelial Cells Moderate /LPF (NONE-FEW) Urine Bacteria Negative /HPF (NONE-FEW) Urine Mucus None /HPF (NONE-FEW) Urinalysis Test 03/24/18 19:10 Urine Color [place] Urine Clarity Clear Urine pH Color interference Urine Specific [place] Color interference Urine Protein Color interference Urine Glucose (UA) Color interference Urine Ketones Color interference Urine Blood Color interference Urine Nitrite Color interference Urine Bilirubin Color interference Urine Urobilinogen Color interference Urine Leukocyte Esterase Color interference Urine RBC 5 /HPF (0-2/HPF) Urine WBC 328 /HPF (0-5/HPF) Urine Squamous Epithelial Cells Many /LPF (</=FEW) Urine Transitional Epithelial Cells Moderate /LPF (NONE-FEW) Urine Bacteria Negative /HPF (NONE-FEW) Urine Mucus None /HPF (NONE-FEW) ED Course/Re-evaluation ED Course Patient is a 37-year-old female here with complaints of burning with urination, increased frequency, nausea, vomiting, general malaise and suprapubic tenderne ss. Patient reports that her symptoms started yesterday and progressively worsened today. Urinalysis was collected and was obscured because the patient is on Azo, but due to the patient's symptoms and increased white blood cell count in the urine, patient was treated with nitrofurantoin and given a prescription for 5 day course. Urine culture was sent for analysis. Patient was advised to follow up with PCP. Decision to Disposition Date: Mar 24, 2018 Decision to Disposition Time: 17:15 Depart Departure Latest Vital Signs Vital Signs Date Time Temp Pulse Resp B/P (MAP) Pulse Ox O2 Delivery O2 Flow Rate FiO2 03/24/18 19:23 98.4 80 16 140/79 93 Room Air Impression: Primary Impression: UTI (urinary tract infection) Condition: Improved Disposition: HOME OR SELF-CARE New Scripts Nitrofurantoin Macrocrystal (NITROFURANTOIN) 100 Mg Capsule 100 MG PO BID for 5 Days, #10 CAPSULE Prov: KRISTINA BORJAS DO 03/24/18 Patient Instructions: Nitrofurantoin (By mouth), Urinary Tract Infection in Women (ED) Additional Instructions: Please take one tablet and nitrofurantoin twice daily for 5 days. A urine culture was sent and is pending at this time. Please follow-up with your family doctor in one week for follow-up care. Please return promptly if your symptoms fail to respond to treatment. KRISTINA BORJAS DO Mar 24, 2018 19:14
[2018-03-24 19:30] VITALS: BP 113/67
[2018-03-24] MEDS ORDERED: PHENAZOPYRIDINE 200 MG TAB PO ONE (19:35)
[2018-03-24] MEDS ORDERED: NITROFURANTOIN MONO 100 MG PO ONE (19:40)
[2018-03-24] MEDS ORDERED: NITR-1 PO (19:41)
== END 2018-03-24 20:00 | disposition home or self-care (01) ==
LOC: ER 19:16
DX: N39.0 Urinary tract infection, site not specified (principal)
CPT/HCPCS: 81001; 87088; 99283

== ENCOUNTER 2018-05-03 23:40 | Emergency (ER) | payer MEDICAID ==
[~2018-05-03 23:40] MED LIST changes: -HYDR-4309 PO; +HYDR-653 PO; +NITR-1 PO
[2018-05-03] MEDS ORDERED: BUPR-474 PO (23:46)
--- NOTE | 2018-05-03 23:56 | ER Report ---
History and Physical Time Seen By MD: 23:55 Hx. of Stated Complaint: PT WOKE UP THIS MORNING WITH SHARP PAIN IN HER LEFT KNEECAP. PT STATES SHE IS UNABLE TO BARE ANY WEIGHT ON THAT LEG. DENIES ANY FALL/ INJURY TO LEFT LEG. HPI/ROS CHIEF COMPLAINT: knee pain HISTORY OF PRESENT ILLNESS: This is a 38 year old female. She has left knee pain. Present on awakening. She may have moved it wrong yesterday, but does not remember a distinct injury. Pain is over the anterior inferior patella. Pain worsens with bending the knee and trying to walk. No fevers. No rashes skin lesions. Allergies: Coded Allergies: naproxen (Verified Allergy, Intermediate, RASH, 09/22/17) tramadol (Verified Allergy, Intermediate, RASH, 09/22/17) Home Meds Active Scripts Ketorolac Tromethamine (KETOROLAC TROMETHAMINE) 10 Mg Tab, 10 MG PO Q6H PRN for PAIN, #12 TAB 0 Refills Prov:JESSE CUELLAR MD 05/04/18 Reported Medications Bupropion Hcl (WELLBUTRIN XL) 300 Mg Tab.er.24h, 300 MG PO QDAY, TAB 05/03/18 Escitalopram Oxalate (LEXAPRO) 20 Mg Tablet, 10 MG PO QDAY, TAB 09/22/17 Discontinued Scripts Nitrofurantoin Macrocrystal (NITROFURANTOIN) 100 Mg Capsule, 100 MG PO BID for 5 Days, #10 CAPSULE Prov:KRISTINA BORJAS DO 03/24/18 Reviewed Nurses Notes: Yes Hx Smoking: No Smoking Status: Former Smoker Exposure to Second Hand Smoke?: No Hx Substance Use Disorder: No Hx Alcohol Use: No Constitutional Vital Sign - Last 24 Hours 05/03/18 05/04/18 23:42 01:00 Temp 97.9 Pulse 89 99 Resp 18 B/P (MAP) 154/93 128/90 (103) Pulse Ox 93 O2 Delivery Room Air Physical Exam General appearance: Alert no distress. Musculoskeletal: Left knee shows no significant swelling. There is no effusion. There is no obvious deformity of the knee. Patella had mild pain inferior patella tendon. Medial jointline is non-tender to palpation. Lateral jointline is non-tender to palpation. Tray is negative. The joint is stable with no comparable ligamentous laxity to the knee. No pain posterior knee. Does have pain with range of motion, limited to inferior patella tendon. No sign of tendon rupture or weakness. There is no tenderness proximal or distal to the knee. Neurologic: The patient has normal sensation distal to the injury. Cardiovascular: Normal pulses and capillary refill in the foot Skin: No rashes. No skin breakdown. DIFFERENTIAL DIAGNOSIS: After history and physical exam differential diagnosis was considered for knee pain that looks like inferior patella tendonitis. Medical Decision Making EKG/Imaging Imaging INDICATION: Anterior knee pain. EXAM DATE: 05/04/2018 12:00 AM COMPARISON: None. FINDINGS: 4 views left knee. Mineralization is normal. No acute alignment abnormality or fracture. Soft tissues are unremarkable. IMPRESSION: No acute osseous abnormality of the left knee. Report Dictated By: Bridger Chamorro MD at 05/04/2018 12:31 AM ED Course/Re-evaluation ED Course Negative imaging. No fevers with normal vitals. Skin without warmth or redness or signs of infection. Conservative measures for patella tendonitis. Decision to Disposition Date: May 04, 2018 Decision to Disposition Time: 01:07 Depart Departure Latest Vital Signs Vital Signs Date Time Temp Pulse Resp B/P (MAP) Pulse Ox O2 Delivery O2 Flow Rate FiO2 05/04/18 01:00 99 128/90 (103) 05/03/18 23:42 97.9 18 93 Room Air Impression: Primary Impression: Patellar tendinitis Condition: Improved Disposition: HOME OR SELF-CARE Referrals: SARAH SCHMIDT APRN (PCP) New Scripts Ketorolac Tromethamine (KETOROLAC TROMETHAMINE) 10 Mg Tab 10 MG PO Q6H PRN for PAIN, #12 TAB 0 Refills Prov: JESSE CUELLAR MD 05/04/18 Patient Instructions: Patellar Tendinitis (ED) Additional Instructions: Take Toradol 10mg every 6 hours as needed for pain. You can also take Tylenol 500mg tablets, 1-2 tablets every 6 hours as needed for pain. While taking the Toradol, do not take your Ibuprofen. Once done with the 3 days of the Toradol, you can resume the Ibuprofen. Application of the CARLOS ENRIQUE wrap and application of ice. Apply the ice every hour while awake and apply for about 15-20 minutes. Crutches with weight bearing as tolerated. Follow-up with your primary care provider or with [facility] if not improving. Problem Qualifiers Primary Impression: Patellar tendinitis Laterality: left Qualified Codes: M76.52 - Patellar tendinitis, left knee ALISAJESSE ALSTON MD May 03, 2018 23:55
--- NOTE | 2018-05-04 00:37 | RADIOLOGY IMAGING REPORT ---
FACILITY: [facility] - [place] PATIENT NAME: Maria Elena Wiley : 1980 MR: [id number] V: [id number] EXAM DATE: ORDERING PHYSICIAN: JESSE CUELLAR TECHNOLOGIST: Location: [facility] [place] Patient: Maria Elena Wiley : 1980 Visit/Account:[id number] Date of Sevice: 05/04/2018 INDICATION: Anterior knee pain. EXAM DATE: 05/04/2018 12:00 AM COMPARISON: None. FINDINGS: 4 views left knee. Mineralization is normal. No acute alignment abnormality or fracture. Soft tissues are unremarkable. IMPRESSION: No acute osseous abnormality of the left knee. Report Dictated By: Bridger Chamorro MD at 05/04/2018 12:31 AM Report E-Signed By: Bridger Chamorro MD at 05/04/2018 12:32 AM WSN:[id number]
[2018-05-04 01:00] VITALS: BP 128/90
[2018-05-04] MEDS ORDERED: KET10 PO (01:08)
[2018-05-04] MEDS ORDERED: KETOROLAC TROM 10 MG TAB TH PO ONE (01:10)
== END 2018-05-04 01:15 | disposition home or self-care (01) ==
LOC: ER 23:46
DX: M76.52 Patellar tendinitis, left knee (principal)
CPT/HCPCS: 73564; 99283

== ENCOUNTER 2018-08-13 19:04 | Emergency (ER) | payer MEDICAID ==
[~2018-08-13 19:04] MED LIST changes: +BUPR-474 PO
[2018-08-13 19:20] VITALS: BP 118/85
--- NOTE | 2018-08-13 19:32 | ER Report ---
History and Physical Time Seen By MD: 19:29 Hx. of Stated Complaint: patient has been having flu like symptoms; states that it started today HPI/ROS CHIEF COMPLAINT: Flu symptoms, left leg pain HISTORY OF PRESENT ILLNESS: 38-year-old female presents ambulatory to the ER complaining of flulike symptoms. She's here with HER-2 children also a flu symptoms, her younger son was 14, has been sick for 2 weeks with upper respiratory symptoms. He's been having intermittent fevers. She is also here with her daughter who is been sick for 24 hours with flulike symptoms. Patient notes that she herself has been sick since this morning. Patient notes posterior leg pain into her calf muscle. It's been there intermittently for the last 4 weeks. His been worse over the last week. She notes no leg swelling. REVIEW OF SYSTEMS: Respiratory: As above. Cardiovascular: No chest pain, no palpitations. Gastrointestinal: No vomiting, no abdominal pain. Musculoskeletal: No back pain. Allergies: Coded Allergies: naproxen (Verified Allergy, Intermediate, RASH, 09/22/17) tramadol (Verified Allergy, Intermediate, RASH, 09/22/17) Home Meds Reported Medications Bupropion Hcl (WELLBUTRIN XL) 300 Mg Tab.er.24h, 300 MG PO QDAY, TAB 05/03/18 Escitalopram Oxalate (LEXAPRO) 20 Mg Tablet, 10 MG PO QDAY, TAB 09/22/17 Discontinued Scripts Ketorolac Tromethamine (KETOROLAC TROMETHAMINE) 10 Mg Tab, 10 MG PO Q6H PRN for PAIN, #12 TAB 0 Refills Prov:JESSE CUELLAR MD 05/04/18 Reviewed Nurses Notes: Yes Old Medical Records Reviewed: Yes Hx Smoking: No Smoking Status: Former Smoker Exposure to Second Hand Smoke?: No Hx Substance Use Disorder: No Hx Alcohol Use: No Constitutional Vital Sign - Last 24 Hours 08/13/18 19:20 Temp 98.4 Pulse 93 Resp 18 B/P (MAP) 118/85 Pulse Ox 95 O2 Delivery Room Air Physical Exam General Appearance: The patient is alert, has no immediate need for airway protection and no current signs of toxicity. Vital signs stable, afebrile, pulse ox normal HEENT: Pupils equal and round no injection. TMs normal, oropharynx with mild erythema, no exudate Respiratory: Chest is non tender, lungs are clear to auscultation. No wheezing or rails Cardiac: regular rate and rhythm Gastrointestinal: Abdomen is soft and non tender, no masses, bowel sounds normal. Musculoskeletal: Neck: Neck is supple and non tender. Extremities have full range of motion and are non tender. Skin: No rashes or lesions. DIFFERENTIAL DIAGNOSIS: After history and physical exam differential diagnosis was considered for adult fever including but not limited to viral syndromes including influenza, urinary tract infection, pneumonia and sepsis., DVT, calf strain, tendinitis, Mulligan's cyst, muscle strain Medical Decision Making Data Points Laboratory Hematology Test 08/13/18 19:13 Influenza Virus Type A (PCR) Positive (NEGATIVE) Influenza Virus Type B (PCR) Negative (NEGATIVE) Chemistry Test 08/13/18 19:13 Influenza Virus Type A (PCR) Positive (NEGATIVE) Influenza Virus Type B (PCR) Negative (NEGATIVE) EKG/Imaging Imaging Results: Ultrasound of the left lower extremity venogram was obtained. The results of the study are US VENOUS LOWER EXT LT HISTORY: Left lower extremity pain and swelling. COMPARISON: None. FINDINGS: Grayscale, duplex and color Doppler interrogation of the left lower extremity deep veins from common femoral vein to proximal calf was completed. Common femoral vein: Negative. Femoral vein: Negative. Deep femoral vein: Negative. Popliteal vein: Negative. Visualized calf veins: Negative. Popliteal fossa: Negative. Greater saphenous vein in the proximal thigh: Negative. Other findings: None significant IMPRESSION: 1. Negative examination for deep venous thrombosis within the left lower extremity. The study was read by the radiologist. I viewed the images myself on the PACS system. ED Course/Re-evaluation ED Course Patient was admitted to an examination room. H&P was done. The differential diagnoses was considered. On conical examination. Patient has flulike symptoms. A rapid influenza is performed. It comes back positive for flu a. Patient's having left lower leg pain. An ultrasound is performed. And is negative for DVT. Patient's advised conservative treatment of her flu symptoms. Patient's advised ibuprofen and Tylenol for symptomatically relief. She is advised to increase fluid intake, use DayQuil and NyQuil as needed for symptom relief. Decision to Disposition Date: Aug 13, 2018 Decision to Disposition Time: 20:26 Depart Departure Latest Vital Signs Vital Signs Date Time Temp Pulse Resp B/P (MAP) Pulse Ox O2 Delivery O2 Flow Rate FiO2 08/13/18 19:20 98.4 93 18 118/85 95 Room Air Impression: Primary Impression: Influenza A Additional Impression: Left leg pain Condition: Improved Disposition: HOME OR SELF-CARE Referrals: SARAH SCHMIDT APRN (PCP) Patient Instructions: Influenza (ED) Additional Instructions: Alternate ibuprofen 600 mg and Tylenol, 650 mg every 4 hours, control fevers and body aches Use DayQuil and NyQuil to alleviate your symptoms Drink plenty of fluids Apply heating pad to your left lower extremity Follow up with primary care if unimproved in 3-5 days Problem Qualifiers CRUZ LUEVANO DO Aug 13, 2018 19:32
--- NOTE | 2018-08-13 20:50 | RADIOLOGY IMAGING REPORT ---
FACILITY: [facility] - [place] PATIENT NAME: Maria Elena Wiley : 1980 MR: [id number] V: [id number] EXAM DATE: ORDERING PHYSICIAN: CRUZ LUEVANO TECHNOLOGIST: Location: [facility] Patient: Maria Elena Wiley : 1980 Visit/Account:[id number] Date of Sevice: 08/13/2018 US VENOUS LOWER EXT LT HISTORY: Left lower extremity pain and swelling. COMPARISON: None. FINDINGS: Grayscale, duplex and color Doppler interrogation of the left lower extremity deep veins from common femoral vein to proximal calf was completed. Common femoral vein: Negative. Femoral vein: Negative. Deep femoral vein: Negative. Popliteal vein: Negative. Visualized calf veins: Negative. Popliteal fossa: Negative. Greater saphenous vein in the proximal thigh: Negative. Other findings: None significant IMPRESSION: 1. Negative examination for deep venous thrombosis within the left lower extremity. Report Dictated By: Sebastián Norton MD at 08/13/2018 8:45 PM Report E-Signed By: Sebastián Norton MD at 08/13/2018 8:46 PM WSN:[id number]
== END 2018-08-13 20:37 | disposition home or self-care (01) ==
LOC: ER 19:24
DX: J09.X2 Influenza due to identified novel influenza A virus with other respiratory manifestations (principal)
CPT/HCPCS: 87502; 99284

== ENCOUNTER 2018-09-18 02:26 | Emergency (ER) | payer MEDICAID, OTHER ==
--- NOTE | 2018-09-18 02:29 | ER Report ---
History and Physical Time Seen By MD: 02:28 HPI/ROS CHIEF COMPLAINT: Overdose HISTORY OF PRESENT ILLNESS: 38-year-old female took 5 of her 's Flexeril 10 mg tablets as an overdose attempted suicide at approximately 0130. Patient was brought in by EMS and police. She is placed on an emergency correction by police. Patient was having argument with her significant other. Patient expressed a desire to . She did not want to wake up. Patient also ate a edible cannabis cookie. REVIEW OF SYSTEMS: Respiratory: No cough, no dyspnea. Cardiovascular: No chest pain, no palpitations. Gastrointestinal: No vomiting, no abdominal pain. Musculoskeletal: No back pain. Allergies: Coded Allergies: naproxen (Verified Allergy, Intermediate, RASH, 09/22/17) tramadol (Verified Allergy, Intermediate, RASH, 09/22/17) Home Meds Reported Medications Bupropion Hcl (WELLBUTRIN XL) 300 Mg Tab.er.24h, 300 MG PO QDAY, TAB 05/03/18 Escitalopram Oxalate (LEXAPRO) 20 Mg Tablet, 10 MG PO QDAY, TAB 09/22/17 Past Medical/Surgical History Patient has a past medical history of hypertension, kidney stone, frequent UTIs, ovarian cyst, arthritis, fracture, back pain. Patient denies any pertinent surgical history. Patient has a family medical history of diabetes. Reviewed Nurses Notes: Yes Old Medical Records Reviewed: Yes Hx Smoking: No Smoking Status: Former Smoker Exposure to Second Hand Smoke?: No Hx Substance Use Disorder: No Hx Alcohol Use: No Constitutional Vital Sign - Last 24 Hours 09/18/18 09/18/18 09/18/18 09/18/18 02:32 02:36 02:46 02:56 Temp 98.7 Pulse 100 96 88 86 Resp 16 18 B/P (MAP) 151/92 Pulse Ox 90 93 94 O2 Delivery Room Air 09/18/18 09/18/18 09/18/18 09/18/18 03:06 03:11 03:16 03:26 Pulse 84 84 83 Resp 14 17 15 B/P (MAP) 113/74 (87) Pulse Ox 94 97 97 09/18/18 09/18/18 09/18/18 09/18/18 03:30 03:36 03:46 03:56 Pulse 82 83 80 Resp 16 16 15 B/P (MAP) 109/62 (78) Pulse Ox 96 96 96 09/18/18 09/18/18 09/18/18 09/18/18 04:00 04:06 04:16 04:26 Pulse 80 79 76 Resp 15 16 16 B/P (MAP) 106/65 (79) Pulse Ox 96 94 94 09/18/18 09/18/18 09/18/18 09/18/18 04:41 04:51 05:00 05:01 Pulse 82 86 84 Resp 27 B/P (MAP) 128/84 (99) Pulse Ox 96 89 09/18/18 09/18/18 09/18/18 09/18/18 05:06 05:16 05:26 05:30 Pulse 80 82 83 Resp 15 16 B/P (MAP) 102/68 (79) Pulse Ox 85 84 09/18/18 09/18/18 09/18/18 09/18/18 05:36 05:41 05:51 06:00 Pulse 75 76 78 Resp 14 15 15 B/P (MAP) 115/75 (88) Pulse Ox 96 95 96 09/18/18 09/18/18 06:01 06:11 Pulse 75 75 Resp 16 15 Pulse Ox 96 96 Physical Exam General Appearance: The patient is alert, has no immediate need for airway protection and no current signs of toxicity. Vital signs stable, afebrile, pulse ox normal. Patient slightly lethargic HEENT: Pupils equal and round no injection. Oropharynx without redness or exudate, mucous members are moist Respiratory: Chest is non tender, lungs are clear to auscultation. Cardiac: regular rate and rhythm Gastrointestinal: Abdomen is soft and non tender, no masses, bowel sounds normal. Musculoskeletal: Neck: Neck is supple and non tender. Extremities have full range of motion and are non tender. Skin: No rashes or lesions. DIFFERENTIAL DIAGNOSIS: After history and physical exam differential diagnosis was considered for depression including functional and major depression, situational depression, medication side effect, suicidal ideation, suicidal attempt drugs and alcohol abuse. Medical Decision Making Data Points Result Diagram: 09/18/18 0250 09/18/18 0250 Laboratory Hematology Test 09/18/18 02:30 09/18/18 02:50 Urine Color Yellow Urine Clarity Slightly-cloudy Urine pH 6.0 pH (4.8-9.5) Urine Specific [place] 1.024 Urine Protein 100 mg/dL (NEGATIVE) Urine Glucose (UA) Negative mg/dL (NEGATIVE) Urine Ketones Trace mg/dL (NEGATIVE) Urine Blood Moderate (NEGATIVE) Urine Nitrite Negative (NEGATIVE) Urine Bilirubin Negative (NEGATIVE) Urine Urobilinogen Negative mg/dL (0.2-1.9) Urine Leukocyte Esterase Small (NEGATIVE) Urine RBC 6 /HPF (0-2/HPF) Urine WBC 85 /HPF (0-5/HPF) Urine WBC Clumps Few /HPF Urine Squamous Epithelial Cells Many /LPF (</=FEW) Urine Bacteria Few /HPF (NONE-FEW) Urine Hyaline Casts Few /LPF (NONE-FEW) Urine Mucus Few /HPF (NONE-FEW) Urine HCG, Qualitative Negative (NEGATIVE) Urine Opiates Screen Negative Urine Barbiturates Screen Negative Ur Tricyclic Antidepressants Screen Negative Urine Phencyclidine Screen Negative Urine Amphetamines Screen Negative Urine Benzodiazepines Screen Negative Urine Cocaine Screen Negative Urine Cannabinoids Screen Positive Red Blood Count 5.03 M/uL (4.17-5.56) Mean Corpuscular Volume 89.8 fL (80.0-96.0) Mean Corpuscular Hemoglobin 30.9 pg (26.0-33.0) Mean Corpuscular Hemoglobin Concent 34.4 g/dL (32.0-36.0) Red Cell Distribution Width 14.2 % (11.5-14.5) Mean Platelet Volume 6.9 fL (7.2-11.1) Neutrophils (%) (Auto) 81.8 % (39.4-72.5) Lymphocytes (%) (Auto) 10.6 % (17.6-49.6) Monocytes (%) (Auto) 6.3 % (4.1-12.4) Eosinophils (%) (Auto) 0.9 % (0.4-6.7) Basophils (%) (Auto) 0.4 % (0.3-1.4) Nucleated RBC Relative Count (auto) 0.1 /100WBC Neutrophils # (Auto) 8.3 K/uL (2.0-7.4) Lymphocytes # (Auto) 1.1 K/uL (1.3-3.6) Monocytes # (Auto) 0.6 K/uL (0.3-1.0) Eosinophils # (Auto) 0.1 K/uL (0.0-0.5) Basophils # (Auto) 0.0 K/uL (0.0-0.1) Nucleated RBC Absolute Count (auto) 0.01 K/uL Sodium Level 137 mmol/L (137-145) Potassium Level 3.8 mmol/L (3.5-5.0) Chloride Level 101 mmol/L (98-107) Carbon Dioxide Level 26 mmol/L (22-31) Blood Urea Nitrogen 9 mg/dl (7-18) Creatinine 0.60 mg/dl (0.52-1.04) Glomerular Filtration Rate Calc > 60.0 Random Glucose 132 mg/dl (75-110) Calcium Level 9.2 mg/dl (8.4-10.2) Magnesium Level 1.9 mg/dl (1.7-2.2) Total Bilirubin 0.6 mg/dl (0.2-1.3) Aspartate Amino Transf (AST/SGOT) 30 U/L (0-35) Alanine Aminotransferase (ALT/SGPT) 38 U/L (0-56) Alkaline Phosphatase 86 U/L (0-126) Total Protein 7.7 g/dl (6.3-8.2) Albumin 4.5 g/dl (3.5-5.0) Salicylates Level < 10 mg/L Salicylate Last Dose Date unk Acetaminophen Level < 10 ug/ml Serum Alcohol < 10 mg/dl Chemistry Test 09/18/18 02:30 09/18/18 02:50 Urine Color Yellow Urine Clarity Slightly-cloudy Urine pH 6.0 pH (4.8-9.5) Urine Specific [place] 1.024 Urine Protein 100 mg/dL (NEGATIVE) Urine Glucose (UA) Negative mg/dL (NEGATIVE) Urine Ketones Trace mg/dL (NEGATIVE) Urine Blood Moderate (NEGATIVE) Urine Nitrite Negative (NEGATIVE) Urine Bilirubin Negative (NEGATIVE) Urine Urobilinogen Negative mg/dL (0.2-1.9) Urine Leukocyte Esterase Small (NEGATIVE) Urine RBC 6 /HPF (0-2/HPF) Urine WBC 85 /HPF (0-5/HPF) Urine WBC Clumps Few /HPF Urine Squamous Epithelial Cells Many /LPF (</=FEW) Urine Bacteria Few /HPF (NONE-FEW) Urine Hyaline Casts Few /LPF (NONE-FEW) Urine Mucus Few /HPF (NONE-FEW) Urine HCG, Qualitative Negative (NEGATIVE) Urine Opiates Screen Negative Urine Barbiturates Screen Negative Ur Tricyclic Antidepressants Screen Negative Urine Phencyclidine Screen Negative Urine Amphetamines Screen Negative Urine Benzodiazepines Screen Negative Urine Cocaine Screen Negative Urine Cannabinoids Screen Positive White Blood Count 10.1 k/uL (4.5-11.0) Red Blood Count 5.03 M/uL (4.17-5.56) Hemoglobin 15.6 g/dL (12.0-16.0) Hematocrit 45.2 % (34.0-47.0) Mean Corpuscular Volume 89.8 fL (80.0-96.0) Mean Corpuscular Hemoglobin 30.9 pg (26.0-33.0) Mean Corpuscular Hemoglobin Concent 34.4 g/dL (32.0-36.0) Red Cell Distribution Width 14.2 % (11.5-14.5) Platelet Count 274 K/uL (150-450) Mean Platelet Volume 6.9 fL (7.2-11.1) Neutrophils (%) (Auto) 81.8 % (39.4-72.5) Lymphocytes (%) (Auto) 10.6 % (17.6-49.6) Monocytes (%) (Auto) 6.3 % (4.1-12.4) Eosinophils (%) (Auto) 0.9 % (0.4-6.7) Basophils (%) (Auto) 0.4 % (0.3-1.4) Nucleated RBC Relative Count (auto) 0.1 /100WBC Neutrophils # (Auto) 8.3 K/uL (2.0-7.4) Lymphocytes # (Auto) 1.1 K/uL (1.3-3.6) Monocytes # (Auto) 0.6 K/uL (0.3-1.0) Eosinophils # (Auto) 0.1 K/uL (0.0-0.5) Basophils # (Auto) 0.0 K/uL (0.0-0.1) Nucleated RBC Absolute Count (auto) 0.01 K/uL Glomerular Filtration Rate Calc > 60.0 Calcium Level 9.2 mg/dl (8.4-10.2) Magnesium Level 1.9 mg/dl (1.7-2.2) Total Bilirubin 0.6 mg/dl (0.2-1.3) Aspartate Amino Transf (AST/SGOT) 30 U/L (0-35) Alanine Aminotransferase (ALT/SGPT) 38 U/L (0-56) Alkaline Phosphatase 86 U/L (0-126) Total Protein 7.7 g/dl (6.3-8.2) Albumin 4.5 g/dl (3.5-5.0) Salicylates Level < 10 mg/L Salicylate Last Dose Date unk Acetaminophen Level < 10 ug/ml Serum Alcohol < 10 mg/dl Toxicology Test 09/18/18 02:30 09/18/18 02:50 Urine Opiates Screen Negative Urine Barbiturates Screen Negative Ur Tricyclic Antidepressants Screen Negative Urine Phencyclidine Screen Negative Urine Amphetamines Screen Negative Urine Benzodiazepines Screen Negative Urine Cocaine Screen Negative Urine Cannabinoids Screen Positive Salicylates Level < 10 mg/L Salicylate Last Dose Date unk Acetaminophen Level < 10 ug/ml Serum Alcohol < 10 mg/dl Urinalysis Test 09/18/18 02:30 Urine Color Yellow Urine Clarity Slightly-cloudy Urine pH 6.0 pH (4.8-9.5) Urine Specific [place] 1.024 Urine Protein 100 mg/dL (NEGATIVE) Urine Glucose (UA) Negative mg/dL (NEGATIVE) Urine Ketones Trace mg/dL (NEGATIVE) Urine Blood Moderate (NEGATIVE) Urine Nitrite Negative (NEGATIVE) Urine Bilirubin Negative (NEGATIVE) Urine Urobilinogen Negative mg/dL (0.2-1.9) Urine Leukocyte Esterase Small (NEGATIVE) Urine RBC 6 /HPF (0-2/HPF) Urine WBC 85 /HPF (0-5/HPF) Urine WBC Clumps Few /HPF Urine Squamous Epithelial Cells Many /LPF (</=FEW) Urine Bacteria Few /HPF (NONE-FEW) Urine Hyaline Casts Few /LPF (NONE-FEW) Urine Mucus Few /HPF (NONE-FEW) Urine HCG, Qualitative Negative (NEGATIVE) EKG/Imaging EKG Interpretation 12 lead EK Rhythm: normal sinus rhythm Margaret: normal QRS: normal ST segments: normal, no QRS widening, QT corrected 447 ED Course/Re-evaluation Clinical Indication for ER IV: Hydration, IV Access ED Course Patient was admitted to an examination room. H&P was done. The differential diagnoses was considered. On clinical examination. Patient has stable vital signs. She has no evidence of overdose such as tachycardia and hypotension which is typically seen with tricyclic overdose. Patient took 50 mg of cyclobenzaprine. An EKG shows no QRS widening. Patient be treated with IV fluid hydration. Poison center will be contacted for further recommendations. Patient is slightly drowsy. Poison center advised conservative management with observation and supportive therapy. Some just changed to have potential for seizures benzodiazepines are recommended. Poison control advised that generally under 100 mg of Flexeril, however, asymptomatic other than being drowsy. 09/18/2018 6:05:17 am Case was discussed with Shaniqua Davila nurse practitioner a behavioral health service who accepts patient for admission to [facility] for evaluation of suicidal ideation/suicidal gesture Decision to Disposition Date: Sep 18, 2018 Decision to Disposition Time: 06:06 Date of Report: Sep 18, 2018 Patient Detained By: Law Enforcement Date Patient Detained: Sep 18, 2018 Time Patient Detained: 02:40 Date Skilled Nursing Expires: Sep 21, 2018 Time Skilled Nursing Expires: 02:40 Legal Status: Police Hold: No Legal Status: Residence: [facility] Assessment Data Provided By: Patient, Law Enforcement HPI/ROS: 38-year-old female brought in by [facility] after refusing transport by EMS. Patient took 5 Flexeril/cyclobenzaprine 10 mg tablets at approximately 1:30 after an argument with her significant other. She wanted to go to sleep and not ever wake up. Patient has no prior mental health problems. The medication belongs to her significant other. Diagnosis: Flexeril overdose Suicide attempt Current Dangerous Risk Assess: Current Suicide Ideation, Current Suicide Att empt Current Risk Summary: Patient took a potentially dangerous overdose of Flexeril 10 mg 5 tablets and a cannabis edible. Patient on arrival has stable vital signs. Patient's gesture/attempt is potentially dangerous. The correction will be upheld. Depart Departure Latest Vital Signs Vital Signs Date Time Temp Pulse Resp B/P (MAP) Pulse Ox O2 Delivery O2 Flow Rate FiO2 09/18/18 06:11 75 15 96 09/18/18 06:00 115/75 (88) 09/18/18 02:32 98.7 Room Air Impression: Primary Impression: Overdose Additional Impressions: Suicide attempt Cannabis abuse UTI (urinary tract infection) Condition: Improved Disposition: XFER TO [facility] Referrals: SARAH SCHMIDT APRN (PCP) Problem Qualifiers Primary Impression: Overdose Encounter type: initial encounter Injury intent: intentional self-harm Qualified Codes: T50.902A - Poisoning by unspecified drugs, medicaments and biological substances, intentional self-harm, initial encounter Additional Impressions: UTI (urinary tract infection) Urinary tract infection type: acute cystitis Hematuria presence: without hematuria Qualified Codes: N30.00 - Acute cystitis without hematuria CRUZ LUEVANO DO Sep 18, 2018 02:29
[2018-09-18] MEDS ORDERED: NS(*) 0.9% 1000 ML BAG 1,000 ML IV ONE (02:32)
[2018-09-18 03:10] LABS: PLATELET COUNT, AUTOMATED 274 K/uL (150-450)
[2018-09-18] MEDS ORDERED: cefTRIAXone 1 GM VIAL IVP ONE (03:25)
[2018-09-18 06:00] VITALS: BP 115/75
--- NOTE | 2018-09-18 06:17 | EKG ---
FACILITY: [facility] PATIENT NAME: SEUN HAMLIN : [id number] MR: [id number] V: [id number] EXAM DATE: ORDERING PHYSICIAN: CRUZ LUEVANO TECHNOLOGIST: SHOBHA Test Reason : OD Blood Pressure : / mmHG Vent. Rate : 090 BPM Atrial Rate : 090 BPM P-R Int : 156 ms QRS Dur : 080 ms QT Int : 366 ms P-R-T Axes : 045 008 041 degrees QTc Int : 447 ms Sinus rhythm Possible left atrial enlargement Nonspecific T wave abnormality Abnormal ECG Confirmed by SHADI LOPEZ ([id number]) on 09/18/2018 8:33:34 PM Referred By: CHLOÉ Confirmed By:SHADI LOPEZ
[2018-09-18] MEDS ORDERED: IBUP-136 PO (14:38)
[2018-09-18] MEDS ORDERED: ESCI10TA8 PO (14:38)
[2018-09-18] MEDS ORDERED: ACET-2146 PO (14:38)
[2018-09-19] MEDS ORDERED: METF-1 PO (09:21)
[2018-09-19] MEDS ORDERED: TOPI-119 PO (09:25)
== END 2018-09-18 06:47 ==
LOC: ER 02:37
DX: T48.1X2A Poisoning by skeletal muscle relaxants [neuromuscular blocking agents], intentional self-harm, initial encounter (principal); N30.00 Acute cystitis without hematuria; F12.10 Cannabis abuse, uncomplicated; R94.31 Abnormal electrocardiogram [ECG] [EKG]
CPT/HCPCS: 80305; 81001; 81025; 83735; 84443; 85025; 87077; 87088; 87186; 93005; 96361; 96374; 99283; G0480; J0696; J7030; 80320; 80329; 82040; 82247; 82310; 82374; 82435; 82565; 82947; 84075; 84132; 84155; 84295; 84450; 84460; 84520

== ENCOUNTER 2018-09-18 06:40 | Inpatient (IN) | payer MEDICAID, OTHER ==
[~2018-09-18] VITALS: Ht 157.5 cm; Wt 113.4 kg
[2018-09-18 06:50] VITALS: BP 101/72
[2018-09-18] MEDS ORDERED: MAG HYD/AL HYD/SIMETH 30ML UDC PO PRN (07:50)
[2018-09-18] MEDS: MULTIVITAMINS PO SCH (08:13)
[2018-09-18 09:01] VITALS: BP 108/62
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
[2018-09-18 11:17] VITALS: BP 110/78
[2018-09-18] MEDS ORDERED: INFLUENZA VIRUS VAC 0.5ML SYR IM ONLY ONE (12:10)
[2018-09-18] MEDS ORDERED: ACETAMINOPHEN 325 MG TAB PO PRN (14:05)
[2018-09-18] MEDS ORDERED: IBUP-136 PO (14:38)
[2018-09-18] MEDS ORDERED: ACET-2146 PO (14:38)
[2018-09-18] MEDS ORDERED: ESCI10TA8 PO (14:38)
[2018-09-18] MEDS: IBUPROFEN 600 MG TAB PO PRN ×2 (14:41→21:09)
[2018-09-18] MEDS: ESCITALOPRAM OXALATE 10 MG TAB PO SCH (14:42)
[2018-09-18] MEDS: buPROPion XL 150 MG TABCR PO SCH (14:42)
[2018-09-18 20:59] VITALS: BP 128/79
[2018-09-18] MEDS: TOPIRAMATE 25 MG TAB PO SCH (21:04)
[2018-09-18] MEDS: metFORMIN HCL 500 MG TAB PO SCH (21:05)
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
[2018-09-19 06:10] VITALS: BP 101/60
[2018-09-19] MEDS: MULTIVITAMINS PO SCH (08:19)
[2018-09-19] MEDS: buPROPion XL 150 MG TABCR PO SCH (08:20)
[2018-09-19] MEDS: ESCITALOPRAM OXALATE 10 MG TAB PO SCH (08:20)
[2018-09-19] MEDS: metFORMIN HCL 500 MG TAB PO SCH (08:20)
[2018-09-19] MEDS: TOPIRAMATE 25 MG TAB PO SCH (08:20)
[2018-09-19] MEDS ORDERED: METF-1 PO (09:21)
[2018-09-19] MEDS ORDERED: TOPI-119 PO (09:25)
--- NOTE | 2018-09-22 12:05 | BHS Discharge Summary ---
[facility] Discharge Summary Pela-zf-Byjj Encounter Date: Sep 19, 2018 Ndux-bd-Ipzo Encounter Time: 11:00 Reason-Hosp/Final Diag (DSM-V): (1) Persistent depressive disorder Hospital Course & Plan: CHIEF COMPLAINT "I'm ashamed. It's so stupid. I was really upset with my , and I lost it." HISTORY OF PRESENT ILLNESS This is the first-ever psychiatric hospitalization for this 38-year-old female, who was initially brought in by the police on an emergency nursing home, but who was then converted to voluntary status. She was admitted because of a presumed overdose. Today, the patient explains that her spouse told her that he had told another woman that he loved her. The patient knew that he was having a relationship with this woman, but became extremely distraught when he said that he loved her. The patient says she was so angry and upset and could not calm down for several hours. She took five Flexeril tablets to try to help her relax and get to sleep. She says that this was not a suicide attempt, and she denies suicidal ideation. She says she understands how people could think that she had been suicidal because of how upset she was. She does have a history of depression, and when her depression is bad, she will have low energy, staying in bed, not really functioning very well, not eating well, crying a lot. She acknowledges some mild mood swings from normal to depressed, but she has never had any clear euphoric episodes. She denies any history of auditory or visual hallucinations. She has never had a suicide attempt before. She denies any recent suicidal ideation. She does report that she ate a cannabis cookie the day before this incident, but she denies any drug abuse. 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 She currently is seeing STEPHON Mcgraw, for the past two years. She takes Lexapro 10 mg and Wellbutrin 300 mg. I spoke with Jayda Garcia, who confirms her history and says that the patient does have a history of depression, but Jayda has never known her to be suicidal. The patient also sees Chelita Molina, who is a private-practice psychotherapist whom the patient sees weekly. PAST MEDICAL HISTORY The patient has frequent headaches, up to three or four per week, with possible migrainoid features. She does use oxygen at night. She is scheduled for a sleep study, but has not had it yet. She is obese. HOSPITAL COURSE Pt admitted to [facility] and maintained on suicide precautions. She was pleasant and cooperative throughout her stay, and participated in individual and group therapies. Her did visit and she said they had a good talk and sorted some things out, and that they both want to go to couples therapy. Because of her migraine headaches we started topomax. We checked fasting lipids and hgb A1c which were WNL (below). We did start metformin due to obesity. We kept her on her wellbutrin and lexapro. She denies SI throughout her hospital stay. We scheduled an appointment for her with Jayda SZYMANSKI for 09/21 at 4 pm. She will follow up with Chelita Molina for therapy as well, and she wants to talk to Chelita about a referral to couples therapy. She was discharged in stable and improved condition. (2) Partner relational problem Physical Exam Latest Vital Signs Vital Signs 09/18/18 09/19/18 11:17 06:10 Temp 98.1 Pulse 78 Resp 15 B/P (MAP) 101/60 (74) Pulse Ox 91 O2 Delivery Room Air O2 Flow Rate 2.0 Mental Status Exam General Appearance: Casual, Well Groomed, Good Eye Contact, Cooperative, Polite, Good Interaction Speech: Clear, Spontaneous, Normal Rate, Normal Rhythm, Normal Volume, Normal Tone Mood: Euthymic Affect: Full and Appropriate, Calm Thought Process: Organized, Logical, Goal Directed Thought Content: No Suicidal Ideation, No Homicidal Ideation, No Delusions, No Auditory Halllucinations, No Visual Hallucinations, No Thought Broadcasting, No Ideas of Reference, No Obsessions, No Compulsions, No Other Sensorium: Clear Cognition: Alert & Oriented-Person, Alert & Oriented-Place, Alert & Oriented- Time, Xikxv-Anznbwpz-Hffitcenu Memory: Immediate, Recent, Remote Intelligence: Average Insight Judgment: Fair Departure Item Value Date Time Hemoglobin A1c 5.4 % 09/18/18 0250 Triglycerides Level 125 mg/dl 09/19/18 0620 Cholesterol Level 151 mg/dl 09/19/18 06 LDL Cholesterol 78 mg/dl 09/19/18 06 VLDL Cholesterol 25 mg/dl 09/19/18 619 HDL Cholesterol 48 mg/dl 09/19/18619 Percent HDL Cholesterol 31.0 % 09/19/18619 Cholesterol Ratio (LDL/HDL) 1.62 09/19/18619 Cholesterol/HDL Ratio 3.1 09/19/18619 White Blood Count 10.1 k/uL 09/18/18249 Red Blood Count 5.03 M/uL 09/18/18249 Hemoglobin 15.6 g/dL 09/18/18249 Hematocrit 45.2 % 09/18/18249 Mean Corpuscular Volume 89.8 fL 09/18/18249 Mean Corpuscular Hemoglobin 30.9 pg 09/18/18249 Mean Corpuscular Hemoglobin Concent 34.4 g/dL 09/18/18249 Red Cell Distribution Width 14.2 % 09/18/18249 Platelet Count 274 K/uL 09/18/18249 Sodium Level 137 mmol/L 09/18/18249 Potassium Level 3.8 mmol/L 09/18/18249 Chloride Level 101 mmol/L 09/18/18249 Carbon Dioxide Level 26 mmol/L 09/18/18249 Blood Urea Nitrogen 9 mg/dl 09/18/18249 Creatinine 0.60 mg/dl 09/18/18249 Glomerular Filtration Rate Calc > 60.0 09/18/18249 Random Glucose 132 mg/dl H 09/18/18249 Hemoglobin A1c 5.4 % 09/18/18249 Calcium Level 9.2 mg/dl 09/18/18249 Magnesium Level 1.9 mg/dl 09/18/18249 Total Bilirubin 0.6 mg/dl 09/18/18249 Aspartate Amino Transf (AST/SGOT) 30 U/L 09/18/18249 Alanine Aminotransferase (ALT/SGPT) 38 U/L 09/18/18249 Alkaline Phosphatase 86 U/L 09/18/18249 Total Protein 7.7 g/dl 09/18/18249 Albumin 4.5 g/dl 09/18/18249 Thyroid Stimulating Hormone (TSH) 3.12 uIU/ml 09/18/18249 Urine Color Yellow 09/18/18229 Urine Appearance Clear 12/12/08921 Urine Clarity Slightly-cloudy 09/18/18229 Urine pH 6.0 pH 09/18/18 023 Urine Specific [place] 1.024 09/18/18 023 Urine Protein 100 mg/dL 09/18/18 023 Urine Glucose (UA) Negative mg/dL 09/18/18 023 Urine Clinitest Negative % 05/11/072044 Urine Ketones Trace mg/dL 09/18/18 023 Urine Blood Moderate 09/18/18 023 Urine Nitrate Negative 12/12/08 09 Urine Nitrite Negative 09/18/18229 Urine Bilirubin Negative 09/18/18 023 Urine Ictotest Negative 05/11/072044 Urine Urobilinogen Negative mg/dL 09/18/18 023 Urine Leukocyte Esterase Small H 09/18/18 0230 Urine RBC 6 /HPF 09/18/18 0230 Urine WBC 85 /HPF 09/18/18 0230 Urine WBC Clumps Few /HPF 09/18/18 0230 Urine Squamous Epithelial Cells Many /LPF H 09/18/18 0230 Urine Bacteria Few /HPF 09/18/18 0230 Urine Hyaline Casts Few /LPF 09/18/18 0230 Urine Mucus Few /HPF 09/18/18 0230 Urine HCG, Qualitative Negative 09/18/18 023 Salicylates Level < 10 mg/L 09/18/18 025 Salicylate Last Dose Date unk 09/18/18 025 Urine Opiates Screen Negative 09/18/18 023 Acetaminophen Level < 10 ug/ml 09/18/18 025 Urine Barbiturates Screen Negative 09/18/18 0230 Ur Tricyclic Antidepressants Screen Negative 09/18/18 023 Urine Phencyclidine Screen Negative 09/18/18 023 Urine Amphetamines Screen Negative 09/18/18 023 Urine Benzodiazepines Screen Negative 09/18/18 023 Urine Cocaine Screen Negative 09/18/18 023 Urine Cannabinoids Screen Positive 09/18/18 023 Serum Alcohol < 10 mg/dl 09/18/18 025 Condition: Improved Discharge to: Home Discharge Instructions Home Meds Reported Medications Topiramate (TOPAMAX) 25 Mg Tablet, 50 MG PO BID for HEADACHE 09/19/18 Metformin Hcl (GLUCOPHAGE) 500 Mg Tablet, 500 MG PO BID, TAB 09/19/18 Ibuprofen (IBUPROFEN) 200 Mg Capsule, 2 CAP PO QHS, CAPSULE 09/18/18 Acetaminophen 500 Mg Tab (ACETAMINOPHEN EXTRA STRENGTH) 500 Mg Tablet, 500 MG PO QPM, TAB 09/18/18 Escitalopram Oxalate (ESCITALOPRAM OXALATE) 10 Mg Tablet, 10 MG PO QDAY, TAB 09/18/18 Bupropion Hcl (WELLBUTRIN XL) 300 Mg Tab.er.24h, 300 MG PO QDAY, TAB 05/03/18 Discontinued Reported Medications Escitalopram Oxalate (LEXAPRO) 20 Mg Tablet, 10 MG PO QDAY, TAB 09/22/17 Multpiple Antipsychotics Used: No Diet: Regular Activity: As Tolerated Special Instructions: Take medications as prescribed. Follow up with outpatient provider for medication management. Follow up with outpatient therapy. Call Crisis Line should symptoms return. BRODIE VALENCIA MD Sep 22, 2018 12:05
== END 2018-09-19 10:22 | disposition home or self-care (01) | DRG 881 ==
LOC: BHS 06:40
PROVIDERS: ADMIT Nurse Practitioner Psychiatric/Mental Health; ATTEND Nurse Practitioner Psychiatric/Mental Health
DX: F34.1 Dysthymic disorder (principal); G43.909 Migraine, unspecified, not intractable, without status migrainosus; Z63.0 Problems in relationship with spouse or partner; Z91.410 Personal history of adult physical and sexual abuse; Z23 Encounter for immunization
CPT/HCPCS: 36415; 82465; 83036; 83718; 84478; 90471; 90674

== ENCOUNTER → 2018-09-29 | Outpatient (CLI) | payer MEDICAID, OTHER ==
[~2018-09-29] MED LIST changes: +ACET-2146 PO; +ESCI10TA8 PO; +METF-1 PO; +TOPI-119 PO
[2018-09-29 09:47] LABS: LDL CHOLESTEROL 78 mg/dl
== END ==
LOC: LAB 09:14
PROVIDERS: ATTEND Nurse Practitioner Family
DX: T50.904D Poisoning by unspecified drugs, medicaments and biological substances, undetermined, subsequent encounter (principal); Z68.41 Body mass index [BMI] 40.0-44.9, adult; Z79.899 Other long term (current) drug therapy
CPT/HCPCS: 36415; 82040; 82247; 82310; 82374; 82435; 82465; 82565; 82947; 83718; 84075; 84132; 84155; 84295; 84450; 84460; 84478; 84520

== ENCOUNTER 2018-10-09 17:33 | Emergency (ER) | payer MEDICAID, OTHER ==
--- NOTE | 2018-10-09 17:47 | ER Report ---
History and Physical Time Seen By MD: 17:40 Hx. of Stated Complaint: WALKING YESTERDAY AND TWISTED ANKLE. FELL ON KNEE HPI/ROS CHIEF COMPLAINT: Right ankle pain HISTORY OF PRESENT ILLNESS: 38-year-old female patient presents to emergency room with complaint of right ankle pain. Patient states that she was walking with her children last night when her foot twisted. She states she fell down and hit her left knee. She has had pain to the left knee as well. Patient states she has been able to walk today. She states that she's had to "gimp around". She denies any numbness tingling to her toes. She states she has not taken any medication for this. She denies having numbness tingling. Patient states the pain seems to be the worst over the foot. Allergies: Coded Allergies: naproxen (Verified Allergy, Intermediate, RASH, 09/22/17) tramadol (Verified Allergy, Intermediate, RASH, 09/22/17) Home Meds Active Scripts Ketorolac Tromethamine (KETOROLAC TROMETHAMINE) 10 Mg Tab, 10 MG PO Q6H, #20 TAB Prov:JEREMIAH DEVLIN DESIGN PAINTER 10/09/18 Reported Medications Topiramate (TOPAMAX) 25 Mg Tablet, 50 MG PO BID for HEADACHE 09/19/18 Metformin Hcl (GLUCOPHAGE) 500 Mg Tablet, 500 MG PO BID, TAB 09/19/18 Ibuprofen (IBUPROFEN) 200 Mg Capsule, 2 CAP PO QHS, CAPSULE 09/18/18 Acetaminophen 500 Mg Tab (ACETAMINOPHEN EXTRA STRENGTH) 500 Mg Tablet, 500 MG PO QPM, TAB 09/18/18 Escitalopram Oxalate (ESCITALOPRAM OXALATE) 10 Mg Tablet, 10 MG PO QDAY, TAB 09/18/18 Bupropion Hcl (WELLBUTRIN XL) 300 Mg Tab.er.24h, 300 MG PO QDAY, TAB 05/03/18 Past Medical/Surgical History Patient has a past medical history of hypertension, frequent UTI, kidney stone, cyst on her ovaries, arthritis, right arm fracture, back pain, alcohol use, depression, anxiety. Patient has no pertinent surgical history. Patient has a family medical history of diabetes. Reviewed Nurses Notes: Yes Hx Smoking: Yes Smoking Status: Current: Every Day Smoker Exposure to Second Hand Smoke?: Yes Hx Substance Use Disorder: No Hx Alcohol Use: Yes Constitutional Vital Sign - Last 24 Hours 10/09/18 10/09/18 17:44 19:30 Temp 98.5 Pulse 90 88 Resp 16 16 B/P (MAP) 141/97 148/85 (106) Pulse Ox 92 92 O2 Delivery Room Air Room Air Physical Exam General Appearance: The patient is alert, has no immediate need for airway protection and no current signs of toxicity. Respiratory: Chest is non tender, lungs are clear to auscultation. Cardiac: regular rate and rhythm Gastrointestinal: Abdomen is soft and non tender, no masses, bowel sounds normal. Musculoskeletal: Neck: Neck is supple and non tender. Extremities have full range of motion and are non tender. Patient has swelling to the right ankle, she is tenderness to the foot. There is no tenderness over the lateral malleolus. Skin: No rashes or lesions. DIFFERENTIAL DIAGNOSIS: After history and physical exam differential diagnosis was considered for fracture, sprain, contusion. Medical Decision Making EKG/Imaging Imaging Examination: KNEE 4 VIEW LEFT Comparison: 05/04/2018 History: Fall yesterday. Left knee pain. Findings: Unchanged mild lateral patellar subluxation. Allowing for differences in positioning, lateral patellar tilt is also favored to be little changed. No acute fracture or malalignment. Femorotibial joint space is within normal limits. No joint effusion. IMPRESSION: No left knee acute fracture or malalignment. Report Dictated By: Sixto Watson MD at 10/09/2018 6:48 PM Report E-Signed By: Sixto Watson MD at 10/09/2018 6:51 PM Examination: ANKLE 3 VIEW MIN RIGHT, FOOT 3 VIEWS RIGHT Comparison: None. History: Fall yesterday. Right foot and ankle pain. Findings: 3 views right ankle: Only seen on the oblique projection there is a possible age-indeterminate cortical irregularity along the lateral malleolus. No other potential fractures identified. Alignment and joint spaces are normal. No soft tissue abnormality. 3 views right foot: No fracture. Alignment and joint spaces are within normal limits. Soft tissues are unremarkable. IMPRESSION: 1. Possible age-indeterminate nondisplaced fracture of the right lateral malleolus. Correlation to the site of the patient's pain is recommended. 2. No right foot fracture or malalignment. Report Dictated By: Sixto Watson MD at 10/09/2018 6:51 PM Report E-Signed By: Sixto Watson MD at 10/09/2018 6:55 PM Examination: ANKLE 3 VIEW MIN RIGHT, FOOT 3 VIEWS RIGHT Comparison: None. History: Fall yesterday. Right foot and ankle pain. Findings: 3 views right ankle: Only seen on the oblique projection there is a possible age-indeterminate cortical irregularity along the lateral malleolus. No other potential fractures identified. Alignment and joint spaces are normal. No soft tissue abnormality. 3 views right foot: No fracture. Alignment and joint spaces are within normal limits. Soft tissues are unremarkable. IMPRESSION: 1. Possible age-indeterminate nondisplaced fracture of the right lateral malleolus. Correlation to the site of the patient's pain is recommended. 2. No right foot fracture or malalignment. Report Dictated By: Sixto Watson MD at 10/09/2018 6:51 PM Report E-Signed By: Sixto Watson MD at 10/09/2018 6:55 PM ED Course/Re-evaluation ED Course Patient was admitted to exam room, history and physical were obtained. Differential diagnoses were considered. On examination lungs are clear, heart is regular, abdomen is soft nontender. Patient does have swelling to the right ankle, she has tenderness over the foot. She is no tenderness over the lateral malleolus. X-rays done of the right ankle, right foot and left knee. They thought it might be a nondisplaced fracture of the lateral malleolus. However her not having any tenderness I do not believe that is the case. We'll go ahead and place her in a Aircast. She is to limit her activity by pain. She is to ice the ankle 2-3 times a day. We did place the patient on Toradol for pain. She is follow-up with primary care provider if she is persistently pain in the next week. Patient verbalized understanding and agreement with plan. Decision to Disposition Date: Oct 09, 2018 Decision to Disposition Time: 19:08 Depart Departure Latest Vital Signs Vital Signs Date Time Temp Pulse Resp B/P (MAP) Pulse Ox O2 Delivery O2 Flow Rate FiO2 10/09/18 19:30 88 16 148/85 (106) 92 Room Air 10/09/18 17:44 98.5 Impression: Primary Impression: Right ankle sprain Additional Impression: Contusion of left knee Condition: Improved Disposition: HOME OR SELF-CARE Referrals: SARAH SCHMIDT APRN (PCP) New Scripts Ketorolac Tromethamine (KETOROLAC TROMETHAMINE) 10 Mg Tab 10 MG PO Q6H, #20 TAB Prov: JEREMIAH DEVLIN 10/09/18 Patient Instructions: Ankle Sprain (ED) Additional Instructions: Get plenty of rest. Ice your ankle 2-3 times a day for 10-15 minutes. Take Tylenol as needed for pain. Wear the brace when you are up moving around. Return to the ER if condition worsens. Problem Qualifiers Primary Impression: Right ankle sprain Encounter type: initial encounter Involved ligament of ankle: unspecified ligament Qualified Codes: S93.401A - Sprain of unspecified ligament of right ankle, initial encounter Additional Impression: Contusion of left knee Encounter type: initial encounter Qualified Codes: S80.02XA - Contusion of left knee, initial encounter JEREMIAH DEVLIN Oct 09, 2018 17:47
--- NOTE | 2018-10-09 18:55 | RADIOLOGY IMAGING REPORT ---
FACILITY: [facility] PATIENT NAME: Maria Elena Wiley : 1980 MR: [id number] V: [id number] EXAM DATE: ORDERING PHYSICIAN: JEREMIAH DEVLIN TECHNOLOGIST: Location: [facility] [place] Patient: Maria Elena Wiley : 1980 Visit/Account:[id number] Date of Sevice: 10/09/2018 Examination: KNEE 4 VIEW LEFT Comparison: 05/04/2018 History: Fall yesterday. Left knee pain. Findings: Unchanged mild lateral patellar subluxation. Allowing for differences in positioning, later al patellar tilt is also favored to be little changed. No acute fracture or malalignment. Femorotibia l joint space is within normal limits. No joint effusion. IMPRESSION: No left knee acute fracture or malalignment. Report Dictated By: Sixto Watson MD at 10/09/2018 6:48 PM Report E-Signed By: Sixto Watson MD at 10/09/2018 6:51 PM WSN:[id number]
--- NOTE | 2018-10-09 18:58 | RADIOLOGY IMAGING REPORT ---
FACILITY: [facility] [place] PATIENT NAME: Maria Elena Wiley : 1980 MR: [id number] V: [id number] EXAM DATE: ORDERING PHYSICIAN: JEREMIAH DEVLIN TECHNOLOGIST: Location: [facility] Patient: Maria Elena Wiley : 1980 Visit/Account:[id number] Date of Sevice: 10/09/2018 Examination: ANKLE 3 VIEW MIN RIGHT, FOOT 3 VIEWS RIGHT Comparison: None. History: Fall yesterday. Right foot and ankle pain. Findings: 3 views right ankle: Only seen on the oblique projection there is a possible age-indeterminate cortic al irregularity along the lateral malleolus. No other potential fractures identified. Alignment and j oint spaces are normal. No soft tissue abnormality. 3 views right foot: No fracture. Alignment and joint spaces are within normal limits. Soft tissues ar e unremarkable. IMPRESSION: 1. Possible age-indeterminate nondisplaced fracture of the right lateral malleolus. Correlation to e site of the patient's pain is recommended. 2. No right foot fracture or malalignment. Report Dictated By: Sixto Watson MD at 10/09/2018 6:51 PM Report E-Signed By: Sixto Watson MD at 10/09/2018 6:55 PM WSN:[id number]
--- NOTE | 2018-10-09 18:59 | RADIOLOGY IMAGING REPORT ---
FACILITY: [facility] PATIENT NAME: Maria Elena Wiley : 1980 MR: [id number] V: [id number] EXAM DATE: ORDERING PHYSICIAN: JEREMIAH DEVLIN TECHNOLOGIST: Location: [facility] Patient: Maria Elena Wiley : 1980 Visit/Account:[id number] Date of Sevice: 10/09/2018 Examination: ANKLE 3 VIEW MIN RIGHT, FOOT 3 VIEWS RIGHT Comparison: None. History: Fall yesterday. Right foot and ankle pain. Findings: 3 views right ankle: Only seen on the oblique projection there is a possible age-indeterminate cortic al irregularity along the lateral malleolus. No other potential fractures identified. Alignment and j oint spaces are normal. No soft tissue abnormality. 3 views right foot: No fracture. Alignment and joint spaces are within normal limits. Soft tissues ar e unremarkable. IMPRESSION: 1. Possible age-indeterminate nondisplaced fracture of the right lateral malleolus. Correlation to e site of the patient's pain is recommended. 2. No right foot fracture or malalignment. Report Dictated By: Sixto Watson MD at 10/09/2018 6:51 PM Report E-Signed By: Sixto Watson MD at 10/09/2018 6:55 PM WSN:[id number]
[2018-10-09] MEDS ORDERED: KET10 PO (19:11)
[2018-10-09 19:30] VITALS: BP 148/85
== END 2018-10-09 19:31 | disposition home or self-care (01) ==
LOC: ER 17:57
DX: S93.401A Sprain of unspecified ligament of right ankle, initial encounter (principal); S80.02XA Contusion of left knee, initial encounter
CPT/HCPCS: 73564; 73610; 73630; 99284; L1930